=== PATIENT | male | born 1980 | race African-American/Black ===

== ENCOUNTER 2016-07-06 17:29 | Emergency (ER) | payer OTHER ==
[~2016-07-06] VITALS: Ht 170.2 cm; Wt 78.5 kg
[~2016-07-06 17:29] MED LIST: ALBU8.5H3 IH; HYDR-971 PO; IBUP400T PO; PENI250T2 PO; PENI500T PO
[2016-07-06 17:32] VITALS: BP 142/74
[2016-07-06] MEDS ORDERED: PENI250T2 PO (17:44)
[2016-07-06] MEDS ORDERED: HYDR-971 PO (17:44)
--- NOTE | 2016-07-06 17:47 | ED.ADGEN ---
Past History Past Medical History: No Pertinent History, Hypertension Past Surgical History: No Surgical History Smoking: Cigarettes Alcohol Use: Rarely Drug Use: None Adult General HPI HPI Patient is a 36-year-old male presents emergency department complaining of chronic dental pain on the right upper side. This tooth is been a ongoing problem. He did finally see a dentist but due to the involvement of the nerve to the tooth they will pull it for him. He has been in contact with multiple oral surgeons having difficulty finding one that will accept his insurance. Patient denies any difficulty with breathing or secretions. Review of Systems Review of Systems Constitutional: Denies fever or chills [] Eyes: Denies change in visual acuity, redness, or eye pain [] HENT: Denies nasal congestion or sore throat [] Respiratory: Denies cough or shortness of breath [] Cardiovascular: No additional information not addressed in HPI [] GI: Denies abdominal pain, nausea, vomiting, bloody stools or diarrhea [] : Denies dysuria or hematuria [] Musculoskeletal: Denies back pain or joint pain [] Integument: Denies rash or skin lesions [] Neurologic: Denies headache, focal weakness or sensory changes [] Endocrine: Denies polyuria or polydipsia [] Allergies Allergies Allergies Coded Allergies Type Severity Reaction Last Updated Verified tramadol Allergy Intermediate rash 04/03/14 Yes trazodone Allergy Intermediate Nausea and Vomiting 04/03/14 No Physical Exam Physical Exam Constitutional: Well developed, well nourished, no acute distress, non-toxic appearance. [] HENT: Normocephalic, atraumatic, bilateral external ears normal, oropharynx moist, no oral exudates, nose normal. [] Eyes: PERRLA, EOMI, conjunctiva normal, no discharge. [] Neck: Normal range of motion, no tenderness, supple, no stridor. [] Cardiovascular:Heart rate regular rhythm, no murmur [] Lungs & Thorax: Bilateral breath sounds clear to auscultation [] Abdomen: Bowel sounds normal, soft, no tenderness, no masses, no pulsatile masses. [] Skin: Warm, dry, no erythema, no rash. [] Back: No tenderness, no CVA tenderness. [] Extremities: No tenderness, no cyanosis, no clubbing, ROM intact, no edema. [] Neurologic: Alert and oriented X 3, normal motor function, normal sensory function, no focal deficits noted. [] Psychologic: Affect normal, judgement normal, mood normal. [] Current Patient Data Vital Signs Vital Signs Date Time Temp Pulse Resp B/P Pulse Ox O2 Delivery O2 Flow Rate FiO2 07/06/16 17:32 98.0 80 18 98 Room Air EKG EKG [] Radiology/Procedures Radiology/Procedures [] Course & Med Decision Making Course & Med Decision Making Pertinent Labs and Imaging studies reviewed. (See chart for details) Patient was again given dental resources along with a prescription for penicillin and [place]. [] Final Impression Final Impression Dental pain [] Problems: Dragon Disclaimer Dragon Disclaimer This electronic medical record was generated, in whole or in part, using a voice recognition dictation system. JOSE ALFREDO SCHULZ MD Jul 06, 2016 17:47
== END 2016-07-06 17:48 | disposition home or self-care (01) ==
LOC: ER 17:29
DX: K08.89 Other specified disorders of teeth and supporting structures (principal); I10 Essential (primary) hypertension; F17.210 Nicotine dependence, cigarettes, uncomplicated; Z88.8 Allergy status to other drugs, medicaments and biological substances
CPT/HCPCS: 99283

== ENCOUNTER 2017-01-05 21:48 | Emergency (ER) | payer OTHER ==
[~2017-01-05] VITALS: Ht 170.2 cm; Wt 77.9 kg
[2017-01-05 21:48] VITALS: BP 154/95
[~2017-01-05 21:48] MED LIST changes: -ALBU8.5H3 IH; +ALBU8.5H8 IH; -IBUP400T PO; +IBUP400T18 PO; -PENI250T2 PO; +PENI250T85 PO
[2017-01-05] MEDS ORDERED: PENI500T PO (22:45)
--- NOTE | 2017-01-05 22:45 | PHYS DOC ---
Past History Past Medical History: No Pertinent History, Hypertension Past Surgical History: No Surgical History Smoking: Cigarettes Alcohol Use: Rarely Drug Use: None Adult General Chief Complaint Chief Complaint: DENTAL PROBLEM HPI HPI 36-year-old male with dental pain. Pain is throbbing moderate intermittent nonradiating and without alleviating factors. Otherwise no other complaints.. Review of systems is negative for stridor fevers chills. All other review of systems is negative unless otherwise noted in history of present illness. ED course: 36-year-old male with dental pain. No tongue swelling, stridor or respiratory distress. Patient is not drooling. Airway intact. Small cavity in the back left tooth. I recommend follow-up with dentist. Penicillin prescribed to follow up with dentist in 2-3 days. The patient was then discharged home in stable condition to follow up with their primary care physician over the next 2- 3 days. They were to return if their symptoms worsened or if they were concerned for any reason. [id number] discharge instructions and return precautions were given. Patient's questions were answered to their satisfaction. Patient is comfortable plan. Review of Systems Review of Systems SEE ABOVE Allergies Allergies Allergies Coded Allergies Type Severity Reaction Last Updated Verified tramadol Allergy Intermediate rash 04/03/14 Yes trazodone Allergy Intermediate Nausea and Vomiting 04/03/14 No Physical Exam Physical Exam Constitutional: Well developed, well nourished, no acute distress, non-toxic appearance. [] HENT: Normocephalic, atraumatic, bilateral external ears normal, oropharynx moist, no oral exudates, nose normal. [] Eyes: PERRLA, EOMI, conjunctiva normal, no discharge. [] Neck: Normal range of motion, no tenderness, supple, no stridor. [] Cardiovascular:Heart rate regular rhythm, no murmur [] Lungs & Thorax: Bilateral breath sounds clear to auscultation [] Abdomen: Bowel sounds normal, soft, no tenderness, no masses, no pulsatile masses. [] Skin: Warm, dry, no erythema, no rash. [] Back: No tenderness, no CVA tenderness. [] Extremities: No tenderness, no cyanosis, no clubbing, ROM intact, no edema. [] Neurologic: Alert and oriented X 3, normal motor function, normal sensory function, no focal deficits noted. [] Psychologic: Affect normal, judgement normal, mood normal. [] EKG EKG [] Radiology/Procedures Radiology/Procedures [] Course & Med Decision Making Course & Med Decision Making Pertinent Labs and Imaging studies reviewed. (See chart for details) [] Dragon Disclaimer Dragon Disclaimer This chart was dictated in whole or in part using Voice Recognition software in a busy, high-work load, and often noisy Emergency Department environment. It may contain unintended and wholly unrecognized errors or omissions. Departure Departure: Impression: Primary Impression: Pain, dental Disposition: HOME, SELF-CARE Condition: STABLE Referrals: ADELINA SARMIENTO (PCP) Patient Instructions: Dental Pain Additional Instructions: Thank you for allowing us to participate in your care today. follow up with a dentist tomorrow or the next day. Scripts Penicillin V Potassium (PENICILLIN V POTASSIUM) 500 Mg Tablet 1 TAB PO BID, #10 TAB 0 Refills Prov: JAYESH SKAGGS MD 01/05/17 JAYESH SKAGGS MD Jan 05, 2017 22:45
[2017-01-05] MEDS ORDERED: IBUPROFEN 400 MG TABLET. PO ONE (23:00)
== END 2017-01-05 23:00 | disposition home or self-care (01) ==
LOC: ER 21:48
DX: K08.89 Other specified disorders of teeth and supporting structures (principal); I10 Essential (primary) hypertension; F17.210 Nicotine dependence, cigarettes, uncomplicated; Z88.6 Allergy status to analgesic agent; Z88.8 Allergy status to other drugs, medicaments and biological substances
CPT/HCPCS: 99283

== ENCOUNTER 2017-07-31 15:38 | Emergency (ER) | payer OTHER ==
[~2017-07-31] VITALS: Ht 168.9 cm; Wt 80.0 kg
[2017-07-31] MEDS ORDERED: ACET-704 PO (16:07)
[2017-07-31] MEDS ORDERED: NAPR-683 PO (16:07)
[2017-07-31] MEDS ORDERED: PENI500T PO (16:07)
--- NOTE | 2017-07-31 16:07 | PHYS DOC ---
Past History Past Medical History: Asthma, Hypertension Past Surgical History: No Surgical History Smoking: Cigarettes Alcohol Use: Occasionally Drug Use: None Adult General Chief Complaint Chief Complaint: DENTAL PROBLEM HPI HPI 37-year-old male patient complaining of right lower jaw and dental pain for 10 days as an intermittent pain that ends with eating and talking as a sharp pain and rated his pain 6/10. Patient said the pain radiated to his ear and denies fever and chills and problems swallowing. Patient states he was not able to follow-up with her dentist because of insurance problem. Review of Systems Review of Systems Constitutional: Denies fever or chills [] Eyes: Denies change in visual acuity, redness, or eye pain [] HENT: Denies nasal congestion or sore throat [] Respiratory: Denies cough or shortness of breath [] Cardiovascular: No additional information not addressed in HPI [] GI: Denies abdominal pain, nausea, vomiting, bloody stools or diarrhea [] : Denies dysuria or hematuria [] Musculoskeletal: Denies back pain or joint pain [] Integument: Denies rash or skin lesions [] Neurologic: Denies headache, focal weakness or sensory changes [] Endocrine: Denies polyuria or polydipsia [] All other systems were reviewed and found to be within normal limits, except as documented in this note. Allergies Allergies Allergies Coded Allergies Type Severity Reaction Last Updated Verified tramadol Allergy Intermediate rash 04/03/14 Yes trazodone Allergy Intermediate Nausea and Vomiting 04/03/14 No Physical Exam Physical Exam Constitutional: Well developed, well nourished, mild distress, non-toxic appearance, anxious. [] HENT: Normocephalic, atraumatic, bilateral external ears normal, oropharynx moist, no oral exudates, right lower molar #1 with remaining root only and tenderness and mild edema and erythema without drainage of pus. [] Eyes: PERRLA, EOMI, conjunctiva normal, no discharge. [] Neck: Normal range of motion, no tenderness, supple, no stridor. [] Cardiovascular:Heart rate regular rhythm, no murmur [] Lungs & Thorax: Bilateral breath sounds clear to auscultation [] Neurologic: Alert and oriented X 3, normal motor function, normal sensory function, no focal deficits noted. [] Psychologic: Anxious, judgement normal, mood normal. [] EKG EKG [] Radiology/Procedures Radiology/Procedures [] Course & Med Decision Making Course & Med Decision Making Evaluation of patient in ER showed 37-year-old male patient who presented here because of dental pain and states ibuprofen did not help his pain. Patient didn' t want to have pain medication in ER. Patient was instructed to quit smoking and follow up with the dentist. Dragon Disclaimer Dragon Disclaimer This electronic medical record was generated, in whole or in part, using a voice recognition dictation system. Departure Departure: Impression: Primary Impression: Dental abscess Additional Impressions: Pain, dental Tobacco abuse Tobacco abuse counseling Disposition: HOME, SELF-CARE (At 1604) Condition: STABLE Referrals: ADELINA SARMIENTO (PCP) Patient Instructions: Dental Abscess, Smoking Cessation Additional Instructions: Quit smoking Follow-up with your dentist in 3-5 days Return to ER if not getting better Scripts Penicillin V Potassium (PENICILLIN V POTASSIUM) 500 Mg Tablet 1 TAB PO QID, #40 TAB Prov: CAYETANO ISABEL MD 07/31/17 Naproxen (NAPROSYN) 500 Mg Tablet 1 TAB PO BID, #20 TAB 1 Refill Prov: CAYETANO ISABEL MD 07/31/17 Acetaminophen With Codeine (TYLENOL WITH CODEINE #3 TABLET) 1 Each Tablet 1 TAB PO Q6HRS, #12 TAB Prov: CAYETANO ISABEL MD 07/31/17 Problem Qualifiers CAYETANO ISABEL MD Jul 31, 2017 16:07
[2017-07-31 16:19] VITALS: BP 132/87
== END 2017-07-31 16:19 | disposition home or self-care (01) ==
LOC: ER 15:38
DX: K04.7 Periapical abscess without sinus (principal); I10 Essential (primary) hypertension; J45.909 Unspecified asthma, uncomplicated; F17.210 Nicotine dependence, cigarettes, uncomplicated; Z71.6 Tobacco abuse counseling; Z88.6 Allergy status to analgesic agent; Z88.8 Allergy status to other drugs, medicaments and biological substances
CPT/HCPCS: 99283

== ENCOUNTER 2017-08-19 15:04 | Emergency (ER) | payer OTHER ==
[~2017-08-19 15:04] MED LIST changes: +ACET-704 PO; +NAPR-683 PO
[2017-08-19 15:10] VITALS: BP 150/99
[2017-08-19] MEDS ORDERED: Percogesic PO (15:39)
[2017-08-19] MEDS ORDERED: CLIN150C14 PO (15:39)
--- NOTE | 2017-08-19 15:41 | PHYS DOC ---
Past History Past Medical History: Asthma, Hypertension, Other Past Surgical History: No Surgical History Smoking: Cigarettes Alcohol Use: Occasionally Drug Use: None Adult General Chief Complaint Chief Complaint: DENTAL PROBLEM [facility] HPI 37-year-old male patient complaining of right lower jaw and tooth pain for 2 and half weeks and states he was seen in this emergency room and treated with antibiotic and pain medication but his dental appointment next week and his pain returned again. Patient denies fever and chills, nausea and vomiting, swallowing problem. Review of Systems Review of Systems Constitutional: Denies fever or chills [] Eyes: Denies change in visual acuity, redness, or eye pain [] HENT: Denies nasal congestion or sore throat reports dental pain [] Respiratory: Denies cough or shortness of breath [] Cardiovascular: No additional information not addressed in HPI [] GI: Denies abdominal pain, nausea, vomiting, bloody stools or diarrhea [] : Denies dysuria or hematuria [] Musculoskeletal: Denies back pain or joint pain [] Integument: Denies rash or skin lesions [] Neurologic: Denies headache, focal weakness or sensory changes [] Endocrine: Denies polyuria or polydipsia [] All other systems were reviewed and found to be within normal limits, except as documented in this note. Current Medications Current Medications Current Medications Medications (Trade) Dose Ordered Sig/Maya Start Time Stop Time Status Last Admin Dose Admin Acetaminophen/ Hydrocodone Bitart (Lortab 5/325) 1 tab 1X ONCE 08/19/17 15:45 08/19/17 15:46 UNV Allergies Allergies Allergies Coded Allergies Type Severity Reaction Last Updated Verified tramadol Allergy Intermediate rash 04/03/14 Yes trazodone Allergy Intermediate Nausea and Vomiting 04/03/14 No Physical Exam Physical Exam Constitutional: Well nourished, mild distress, non-toxic appearance. [] HENT: Normocephalic, atraumatic, bilateral external ears normal, oropharynx moist, no oral exudates, nose normal, right lower molar #2 with extensive cavity and remaining root only without abscess Eyes: PERRLA, EOMI, conjunctiva normal, no discharge. [] Neck: Normal range of motion, no tenderness, supple, no stridor. [] Cardiovascular:Heart rate regular rhythm, no murmur [] Lungs & Thorax: Bilateral breath sounds clear to auscultation [] Neurologic: Alert and oriented X 3, normal motor function, normal sensory function, no focal deficits noted. [] Psychologic: Anxious, judgement normal, mood normal. [] EKG EKG [] Radiology/Procedures Radiology/Procedures [] Course & Med Decision Making Course & Med Decision Making discharge: I've spoken with the patient and/or caregivers. I've explained the patient's condition, diagnosis and treatment plan based on information available to me at this time. I've answered the patient's and/or caregivers questions and addressed any concerns. The patient and/or caregivers have a good understanding the patient's diagnosis, condition and treatment plan as can be expected at this point. Vital signs have been stabilized. The patient's condition is stable for discharge from the emergency department. The patient will pursue further outpatient evaluation with her primary care provider or other designated consulting physician as outlined in the discharge instructions. Patient and/or caregivers are agreeable to this plan of care and follow-up instructions have been explained in detail. The patient and/or caregivers have received these instructions in written format and expressed understanding of these discharge instructions. The patient and her caregivers are aware that if any significant change in condition or worsening of symptoms should prompt him to immediately return to this of the closest emergency department. If an emergent department is not readily available I would encourage him to call 911. Neymar Disclaimer Sophieon Disclaimer This electronic medical record was generated, in whole or in part, using a voice recognition dictation system. Departure Departure: Impression: Primary Impression: Infected dental carries Additional Impressions: Dentalgia Tobacco abuse Tobacco abuse counseling Disposition: HOME, SELF-CARE (At 1540) Condition: STABLE Referrals: ADELINA SARMIENTO (PCP) Patient Instructions: Dental Caries, Dental Pain, Smoking Cessation Additional Instructions: Follow-up with your dentist as a scheduled Quit smoking Scripts [Percogesic] No Conflict Check 1 TAB PO QID Y for PAIN, #14 Prov: CAYETANO ISABEL MD 08/19/17 Clindamycin Hcl (CLINDAMYCIN HCL) 150 Mg Capsule 1 CAP PO QID, #28 CAP Prov: CAYETANO ISABEL MD 08/19/17 Problem Qualifiers CAYETANO ISAEBL MD August 19, 2017 15:41
[2017-08-19] MEDS ORDERED: HYDROcodone/APAP 5/325MG 1 TAB TABLET PO ONE (16:00)
== END 2017-08-19 15:53 | disposition home or self-care (01) ==
LOC: ER 15:04
DX: K02.9 Dental caries, unspecified (principal); K04.7 Periapical abscess without sinus; I10 Essential (primary) hypertension; J45.909 Unspecified asthma, uncomplicated; F17.210 Nicotine dependence, cigarettes, uncomplicated; Z71.6 Tobacco abuse counseling; Z88.6 Allergy status to analgesic agent; Z88.8 Allergy status to other drugs, medicaments and biological substances
CPT/HCPCS: 99283

== ENCOUNTER 2017-10-27 20:30 | Emergency (ER) | payer OTHER ==
[~2017-10-27] VITALS: Ht 167.6 cm; Wt 79.8 kg
[~2017-10-27 20:30] MED LIST changes: +CLIN150C14 PO; +Percogesic PO
[2017-10-27 20:39] VITALS: BP 137/83
--- NOTE | 2017-10-28 07:10 | ED.ADGEN ---
Past History Past Medical History: Asthma, Hypertension, Other Past Surgical History: No Surgical History Smoking: Cigarettes Alcohol Use: Rarely Drug Use: None Adult General Chief Complaint Chief Complaint Back pain HPI HPI Patient is a 37-year-old Afro-[place] male presents with exacerbation of chronic back pain. Patient denies any new injury or repetitive strain type these. Denies family weakness loss of sensation. No fever chills, nausea vomiting sweats. No abdominal pain. Patient is described as moderate severe worse bending, position change and movement. No medications or therapy is attempted prior to ED arrival. Patient states he is able to be seen by a PCP due to lack of insurance. [] Review of Systems Review of Systems ROS as per HPI] All other systems were reviewed and found to be within normal limits, except as documented in this note. Allergies Allergies Allergies Coded Allergies Type Severity Reaction Last Updated Verified tramadol Allergy Intermediate rash 04/03/14 Yes trazodone Allergy Intermediate Nausea and Vomiting 04/03/14 No Physical Exam Physical Exam Constitutional: Well developed, well nourished, no acute distress, non-toxic appearance. [] HENT: Normocephalic, atraumatic, bilateral external ears normal, oropharynx moist, nose normal. [] Eyes: PERRLA, EOMI, conjunctiva normal, no discharge. [] Neck: Normal range of motion, no tenderness. [] Cardiovascular:Heart rate regular rhythm.[] Lungs & Thorax: Bilateral breath sounds clear to auscultation [] Abdomen: Bowel sounds normal, soft, no tenderness. [] Skin: Warm, dry. [] Back: No midline back tenderness, diffuse lower paravertebral pain. No CVA tenderness. [] Extremities: No tenderness. [] Neurologic: Alert and oriented X 3, lower normal motor function, normal sensory function, no focal deficits noted. [] Psychologic: Affect normal, judgement normal, mood normal. [] Current Patient Data Vital Signs Vital Signs Date Time Temp Pulse Resp B/P (MAP) Pulse Ox O2 Delivery O2 Flow Rate FiO2 10/27/17 20:39 98.3 90 18 100 Room Air EKG EKG [] Radiology/Procedures Radiology/Procedures [] Course & Med Decision Making Course & Med Decision Making Pertinent Labs and Imaging studies reviewed. (See chart for details) [Recommend supportive care. ] Final Impression Final Impression [1. back pain] Dragon Disclaimer Dragon Disclaimer This electronic medical record was generated, in whole or in part, using a voice recognition dictation system. MILTON WILBURN DO Oct 28, 2017 07:10
== END 2017-10-27 21:09 | disposition home or self-care (01) ==
LOC: ER 20:30
DX: G89.29 Other chronic pain (principal); M54.5 Low back pain; J45.909 Unspecified asthma, uncomplicated; I10 Essential (primary) hypertension; F17.210 Nicotine dependence, cigarettes, uncomplicated; Z88.6 Allergy status to analgesic agent; Z88.8 Allergy status to other drugs, medicaments and biological substances
CPT/HCPCS: 99282

== ENCOUNTER 2017-12-25 21:16 | Emergency (ER) | payer OTHER ==
[~2017-12-25] VITALS: Ht 167.6 cm; Wt 80.3 kg
--- NOTE | 2017-12-25 21:20 | ED.ADGEN ---
Past History Past Medical History: Asthma, Hypertension, Other Past Surgical History: No Surgical History Smoking: Cigarettes Alcohol Use: Rarely Drug Use: None Adult General Chief Complaint Chief Complaint ".. I ve got a cough... and wheezing..... I have asthma.. but I am out of my albuterol meds... " HPI HPI Patient is a 37 year old male who presents with above hx and complaints of a nonproductive cough and wheezing. Patient denies any travel or specific ill contacts other than his friend that has an upper respiratory infection. Patient does continue to smoke. Patient never been intubated for his asthma. Patient usually uses albuterol treatments up to 4 times a day when he has exacerbation. His triggers are weather changes and dust. Patient does not know a specific ill. Patient denies any history immunosuppression. Review of Systems Review of Systems Constitutional: Denies fever or chills [] Eyes: Denies change in visual acuity, redness, or eye pain [] HENT: History of nasal congestion Respiratory: History of a nonproductive cough and wheezing Cardiovascular: No additional information not addressed in HPI [] GI: Denies abdominal pain, nausea, vomiting, bloody stools or diarrhea [] : Denies dysuria or hematuria [] Musculoskeletal: Denies back pain or joint pain [] Integument: Denies rash or skin lesions [] Neurologic: Denies headache, focal weakness or sensory changes [] Endocrine: Denies polyuria or polydipsia [] All other systems were reviewed and found to be within normal limits, except as documented in this note. Family History Family History Asthma Current Medications Current Medications Current Medications Medications (Trade) Dose Ordered Sig/Maya Start Time Stop Time Status Last Admin Dose Admin Albuterol Sulfate (Ventolin Hfa Inhaler) 2 puff 1X ONCE 12/25/17 22:30 12/25/17 22:31 DC 12/25/17 22:19 2 PUFF Diphenhydramine HCl (Benadryl) 50 mg 1X ONCE 12/25/17 22:00 12/25/17 22:01 DC 12/25/17 21:59 50 MG Prednisone (Prednisone) 60 mg 1X ONCE 12/25/17 22:00 12/25/17 22:01 DC 12/25/17 21:58 60 MG Allergies Allergies Allergies Coded Allergies Type Severity Reaction Last Updated Verified oxymorphone Allergy Intermediate Rash 12/25/17 Yes tramadol Allergy Intermediate rash 04/03/14 Yes trazodone Allergy Intermediate Nausea and Vomiting 04/03/14 No Physical Exam Physical Exam Constitutional: Mild distress, non-toxic appearance. [] HENT: Normocephalic, atraumatic, bilateral external ears normal, oropharynx moist, no oral exudates, nose clear rhinorrhea Eyes: PERRLA, EOMI, conjunctiva normal, no discharge. [] Neck: Normal range of motion, no tenderness, supple, no stridor. [] Cardiovascular:Heart rate regular rhythm, no murmur [] Lungs & Thorax: Bilateral breath sounds equal at apexes with scattered wheezes on auscultation [] Abdomen: Bowel sounds normal, soft, no tenderness, no masses, no pulsatile masses. [] Skin: Warm, dry, no erythema, no rash. [] Back: No tenderness, no CVA tenderness. [] Extremities: No tenderness, no cyanosis, no clubbing, ROM intact, no edema. [] Neurologic: Alert and oriented X 3, normal motor function, normal sensory function, no focal deficits noted. [] Psychologic: Affect anxious, judgement normal, mood normal. [] Current Patient Data Vital Signs Vital Signs Date Time Temp Pulse Resp B/P (MAP) Pulse Ox O2 Delivery O2 Flow Rate FiO2 12/25/17 21:24 97.9 90 18 98 Room Air EKG EKG [] Radiology/Procedures Radiology/Procedures [] Course & Med Decision Making Course & Med Decision Making Pertinent Labs and Imaging studies reviewed. (See chart for details). Patient to take prednisone 50 mg day for 5 days. Patient use [id number] Benadryl 25-50 mg 4 times a day for congestion and rhinorrhea. Patient uses MDI or albuterol treatments 4 times a day. Patient follow-up primary care. Patient strongly encouraged to stop smoking. [] Final Impression Final Impression 1. Asthma exacerbation[] Dragon Disclaimer Dragon Disclaimer This electronic medical record was generated, in whole or in part, using a voice recognition dictation system. DUYEN KERR MD Dec 25, 2017 21:20
[2017-12-25 21:24] VITALS: BP 144/75
[2017-12-25] MEDS ORDERED: PRED50TA PO (21:36)
[2017-12-25] MEDS ORDERED: ALBU2.5V5 NEB (21:37)
[2017-12-25] MEDS ORDERED: predniSONE 20 MG TABLET PO ONE (22:00)
[2017-12-25] MEDS ORDERED: diphenhydrAMINE HCL 25 MG CAPSULE PO ONE (22:00)
[2017-12-25] MEDS ORDERED: ALBUTEROL SULFATE 8GM INHALER. INH ONE (22:30)
== END 2017-12-25 22:40 | disposition home or self-care (01) ==
LOC: ER 21:16
DX: J45.901 Unspecified asthma with (acute) exacerbation (principal); I10 Essential (primary) hypertension; F17.210 Nicotine dependence, cigarettes, uncomplicated; Z88.5 Allergy status to narcotic agent; Z88.6 Allergy status to analgesic agent; Z88.8 Allergy status to other drugs, medicaments and biological substances
CPT/HCPCS: 94640; 99283; J7512; J7613; Q0163

== ENCOUNTER 2018-02-16 08:40 | Emergency (ER) | payer OTHER ==
[~2018-02-16] VITALS: Ht 167.6 cm; Wt 78.5 kg
[2018-02-16 08:40] VITALS: BP 143/98
[~2018-02-16 08:40] MED LIST changes: +ALBU2.5V5 NEB; +PRED50TA PO
[2018-02-16] MEDS ORDERED: PENI500T PO (09:31)
[2018-02-16] MEDS ORDERED: Percogesic PO (09:31)
--- NOTE | 2018-02-16 09:31 | PHYS DOC ---
Past History Past Medical History: Anxiety, Asthma, Depression, Hypertension, Other Past Surgical History: No Surgical History Smoking: Cigarettes Alcohol Use: Rarely Drug Use: None Adult General Chief Complaint Chief Complaint: DENTAL PROBLEM [facility] HPI Patient is a 37 year old male who presents with complaining of dental pain for 10 days that gradually getting worse and doesn't get better with over-the- counter ibuprofen and leftover of Mobic from previous emergency room visit. Patient states he had dental appointment but because of transportation problems he was not able to see his dentist. Patient rated his pain as a severe pain with radiation to his right ear and upper jaw is a constant pain that getting worse with talking and chewing and Patient states he smokes cigars. Patient has had frequent emergency room visits with complaining of different pains. Review of Systems Review of Systems Constitutional: Denies fever or chills [] Eyes: Denies change in visual acuity, redness, or eye pain [] HENT: Denies nasal congestion or sore throat, reports dental pain Respiratory: Denies cough or shortness of breath [] Cardiovascular: No additional information not addressed in HPI [] GI: Denies abdominal pain, nausea, vomiting, bloody stools or diarrhea [] : Denies dysuria or hematuria [] Musculoskeletal: Denies back pain or joint pain [] Integument: Denies rash or skin lesions [] Neurologic: Denies headache, focal weakness or sensory changes [] Endocrine: Denies polyuria or polydipsia [] All other systems were reviewed and found to be within normal limits, except as documented in this note. Allergies Allergies Allergies Coded Allergies Type Severity Reaction Last Updated Verified oxymorphone Allergy Intermediate Rash 12/25/17 Yes tramadol Allergy Intermediate rash 04/03/14 Yes trazodone Allergy Intermediate Nausea and Vomiting 04/03/14 No Physical Exam Physical Exam Constitutional: Well nourished, mild distress, non-toxic appearance. [] HENT: Normocephalic, atraumatic, bilateral external ears normal, oropharynx moist, no oral exudates, nose normal, extensive dental cavity, tooth #32 with tenderness and mild inflammation without sign of abscess. [] Eyes: PERRLA, EOMI, conjunctiva normal, no discharge. [] Neck: Normal range of motion, no tenderness, supple, no stridor. [] Cardiovascular:Heart rate regular rhythm, no murmur [] Lungs & Thorax: Bilateral breath sounds clear to auscultation [] Skin: Warm, dry, no erythema, no rash. [] Back: No tenderness, no CVA tenderness. [] Extremities: No tenderness, no cyanosis, no clubbing, ROM intact, no edema. [] Neurologic: Alert and oriented X 3, normal motor function, normal sensory function, no focal deficits noted. [] Psychologic: Affect normal, judgement normal, mood normal. [] EKG EKG [] Radiology/Procedures Radiology/Procedures [] Course & Med Decision Making Course & Med Decision Making Evaluation of patient in ER showed 37-year-old male patient with history of frequent emergency room visits and complaining of dental pain for 10 days. Patient instructed to follow up with his dentist and quit smoking and plan to give prescription for Pen VK and Percogesic. @1010: Patient asking for narcotic pain medication and instructed to follow with his dentist for his chronic dental pain. Patient has frequent emergency room visits and prescription of hydrocodone. Dragon Disclaimer Dragon Disclaimer This electronic medical record was generated, in whole or in part, using a voice recognition dictation system. Departure Departure: Impression: Primary Impression: Pain, dental Additional Impressions: Tobacco abuse counseling Tobacco abuse Disposition: HOME, SELF-CARE (at 0927) Condition: STABLE Referrals: PCP,MAHOGANY (PCP) Patient Instructions: Smoking Cessation, Tips For Success, Toothache-Brief Additional Instructions: Follow-up with your scheduled dentist appointment Follow-up with your primary care physician in 3-5 days Return to ER if not getting better Scripts [Percogesic] No Conflict Check 1 TAB PO QID PRN for PAIN, #14 TAB Prov: CAYETANO ISABEL MD 02/16/18 Penicillin V Potassium (PENICILLIN V POTASSIUM) 500 Mg Tablet 1 TAB PO QID for Infection, #40 TAB Prov: CAYETANO ISABEL MD 02/16/18 Problem Qualifiers CAYETANO ISABEL MD Feb 16, 2018 09:31
[2018-02-16] MEDS ORDERED: HYDROcodone/APAP 5/325MG 1 TAB TABLET PO ONE (09:45)
== END 2018-02-16 09:37 | disposition home or self-care (01) ==
LOC: ER 08:40
DX: K08.89 Other specified disorders of teeth and supporting structures (principal); K02.9 Dental caries, unspecified; F17.210 Nicotine dependence, cigarettes, uncomplicated; J45.909 Unspecified asthma, uncomplicated; I10 Essential (primary) hypertension; Z71.6 Tobacco abuse counseling; Z88.5 Allergy status to narcotic agent; Z88.6 Allergy status to analgesic agent; Z88.8 Allergy status to other drugs, medicaments and biological substances
CPT/HCPCS: 99283

== ENCOUNTER 2018-07-15 17:38 | Emergency (ER) | payer OTHER ==
[~2018-07-15] VITALS: Ht 167.6 cm; Wt 81.0 kg
[~2018-07-15 17:38] MED LIST changes: +ALBU2.5V8 IH; -ALBU8.5H8 IH; +HYDR-3165 PO; -HYDR-971 PO
--- NOTE | 2018-07-15 17:40 | ED.ADGEN ---
Past History Past Medical History: Anxiety, Asthma, Depression, Hypertension, Other Past Surgical History: No Surgical History Smoking: Cigarettes Alcohol Use: Occasionally Drug Use: None Adult General Chief Complaint Chief Complaint ".. I really hurting .. here in this upper rear tooth...(16).. I was able to get the other one pulled (1)... but they put off this one until later. .. and my asthma is also kicking up.... and I can't get in to see my doctor until next week..." [facility] HPI Patient is a 38 year old male who presents with above hx and complaints of Dental Pain in tooth 16. No trismus. No adenopathy. Pt. also complaints of asthma and recent flair due to seasons and weather changes. Pt. patient denies immune suppression. Patient advised travel or specific ill contacts. Patient does have a dentis and primary he follows with. Pt. states he is currently out of his inhaler. Patient has planned follow-up. Patient does not know his best peak flow.. Patient not on steroids. Patient does continue to smoke. Review of Systems Review of Systems Constitutional: Denies fever or chills [] Eyes: Denies change in visual acuity, redness, or eye pain [] HENT: Denies nasal congestion or sore throat []complaints of dental pain Respiratory: Denies cough or shortness of breath []complaints of wheezing Cardiovascular: No additional information not addressed in HPI [] GI: Denies abdominal pain, nausea, vomiting, bloody stools or diarrhea [] : Denies dysuria or hematuria [] Musculoskeletal: Denies back pain or joint pain [] Integument: Denies rash or skin lesions [] Neurologic: Denies headache, focal weakness or sensory changes [] Endocrine: Denies polyuria or polydipsia [] All other systems were reviewed and found to be within normal limits, except as documented in this note. Family History Family History Noncontributory Current Medications Current Medications Current Medications Medications (Trade) Dose Ordered Sig/Maya Start Time Stop Time Status Last Admin Dose Admin Albuterol Sulfate (Ventolin Hfa Inhaler) 2 puff 1X ONCE 07/15/18 18:00 07/15/18 18:02 DC 07/15/18 18:02 2 PUFF Cephalexin HCl (Keflex) 500 mg 1X ONCE 07/15/18 18:00 07/15/18 18:02 DC 07/15/18 18:01 500 MG Hydrocodone Bitartrate/ Ibuprofen (Vicoprofen 7.5-200) 2 tab 1X ONCE 07/15/18 18:00 07/15/18 18:02 DC 07/15/18 18:01 2 TAB See nursing for home meds Allergies Allergies Allergies Coded Allergies Type Severity Reaction Last Updated Verified oxymorphone Allergy Intermediate Rash 12/25/17 Yes tramadol Allergy Intermediate rash 04/03/14 Yes trazodone Allergy Intermediate Nausea and Vomiting 04/03/14 No Physical Exam Physical Exam Constitutional: Well developed, well nourished, no acute distress, non-toxic appearance. [] HENT: Normocephalic, atraumatic, bilateral external ears normal, oropharynx moist, no oral exudates, nose normal. []Dental pain in tooth #16 Eyes: PERRLA, EOMI, conjunctiva normal, no discharge. [] Neck: Normal range of motion, no tenderness, supple, no stridor. [] Cardiovascular:Heart rate regular rhythm, no murmur [] Lungs & Thorax: Bilateral breath sounds equal apex with scattered wheezes on auscultation [] Abdomen: Bowel sounds normal, soft, no tenderness, no masses, no pulsatile masses. [] Skin: Warm, dry, no erythema, no rash. [] Back: No tenderness, no CVA tenderness. [] Extremities: No tenderness, no cyanosis, no clubbing, ROM intact, no edema. [] Neurologic: Alert and oriented X 3, normal motor function, normal sensory function, no focal deficits noted. [] Psychologic: Affect normal, judgement normal, mood normal. [] Current Patient Data Vital Signs Vital Signs Date Time Temp Pulse Resp B/P (MAP) Pulse Ox O2 Delivery O2 Flow Rate FiO2 07/15/18 17:45 98.7 98 18 99 Room Air EKG EKG [] Radiology/Procedures Radiology/Procedures [] Course & Med Decision Making Course & Med Decision Making Pertinent Labs and Imaging studies reviewed. (See chart for details). Pt. must follow-up with Dentist. . Patient must follow-up primary care. Patient does take Keflex 500 mg 3 times a day. Patient take Tylenol ibuprofen for pain. For marked pain take Vicoprofen up 4 times a day. Use MDI 2 puffs 4 times a day. Return if any concerns. Patient encouraged to stop smoking completely. [] Final Impression Final Impression 1. Dental Pain[] 2. Asthma 3. Tobacco Abuse Neymar Disclaimer Neymar Disclaimer This electronic medical record was generated, in whole or in part, using a voice recognition dictation system. Discharge Summary Visit Information Final Diagnosis Problems Medical Problems: (1) Asthma Status: Acute (2) Pain, dental Status: Acute Brief Hospital Course Allergies Allergies Coded Allergies Type Severity Reaction Last Updated Verified oxymorphone Allergy Intermediate Rash 12/25/17 Yes tramadol Allergy Intermediate rash 04/03/14 Yes trazodone Allergy Intermediate Nausea and Vomiting 04/03/14 No Vital Signs Vital Signs Date Time Temp Pulse Resp B/P (MAP) Pulse Ox O2 Delivery O2 Flow Rate FiO2 07/15/18 17:45 98.7 98 18 99 Room Air Brief Hospital Course Mr. Walker is a 38 old male who presented with asthma and dental pain. Discharge Information Condition at Discharge: Improved, Stable Disposition/Orders: D/C to Home Dischare Medications Current Medications Albuterol Sulfate (Ventolin Hfa Inhaler) 2 puff 1X ONCE INH Last administered on 07/15/18at 18:02; Admin Dose 2 PUFF; Start 07/15/18 at 18:00; Stop 07/15/18 at 18 :02; Status DC Cephalexin HCl (Keflex) 500 mg 1X ONCE PO Last administered on 07/15/18at 18:01 ; Admin Dose 500 MG; Start 07/15/18 at 18:00; Stop 07/15/18 at 18:02; Status DC Hydrocodone Bitartrate/ Ibuprofen (Vicoprofen 7.5-200) 2 tab 1X ONCE PO Last administered on 07/15/18at 18:01; Admin Dose 2 TAB; Start 07/15/18 at 18:00; Stop 07/15/18 at 18:02; Status DC Active Scripts Active Hydrocodone-Ibuprofen 7.5-200 (Hydrocodone/Ibuprofen) 1 Each Tablet 1 Tab PO PRN Q6HRS PRN Keflex (Cephalexin) 500 Mg Capsule 500 Mg PO TID Ventolin Hfa Inhaler (Albuterol Sulfate) 18 Gm Hfa.aer.ad 2 Puff IH PRN Q4HRS PRN 90 Days [Percogesic] 1 Tab PO QID PRN Penicillin V Potassium 500 Mg Tablet 1 Tab PO QID Albuterol Sulfate Neb Soln (Albuterol Sulfate) 2.5 Mg/3 Ml Vial.neb 2.5 Mg NEB QIDPRN PRN 30 Days Prednisone 50 Mg Tablet 50 Mg PO DAILY 5 Days [Percogesic] 1 Tab PO QID PRN Clindamycin Hcl 150 Mg Capsule 1 Cap PO QID Penicillin V Potassium 500 Mg Tablet 1 Tab PO QID Naprosyn (Naproxen) 500 Mg Tablet 1 Tab PO BID Tylenol With Codeine #3 Tablet (Acetaminophen With Codeine) 1 Each Tablet 1 Tab PO Q6HRS Penicillin V Potassium 500 Mg Tablet 1 Tab PO BID Penicillin V Potassium 250 Mg Tablet 1 Tab PO TID [place] 5-325 Tablet (Hydrocodone Bit/Acetaminophen) 1 Each Tablet 1-2 Tab PO PRN Q6HRS PRN Penicillin V Potassium 250 Mg Tablet 1 Tab PO TID [place] 5-325 Tablet (Hydrocodone Bit/Acetaminophen) 1 Each Tablet 1-2 Tab PO PRN Q6HRS PRN Penicillin V Potassium 500 Mg Tablet 1 Tab PO QID Penicillin V Potassium 500 Mg Tablet 1 Tab PO BID [place] 5-325 Tablet (Hydrocodone Bit/Acetaminophen) 1 Each Tablet 1-2 Tab PO PRN Q6HRS PRN Reported Ibuprofen 400 Mg Tablet 1 Tab PO PRN Q6HRS Proair Hfa Inhaler (Albuterol Sulfate) 8.5 Gm Hfa.aer.ad 8.5 Gm IH Dragon Disclaimer This chart was dictated in whole or in part using Voice Recognition software in a busy, high-work load, and often noisy Emergency Department environment. It may contain unintended and wholly unrecognized errors or omissions. DUYEN EKRR MD Jul 15, 2018 17:40
[2018-07-15 17:45] VITALS: BP 160/84
[2018-07-15] MEDS ORDERED: ALBU2.5V8 IH (17:48)
[2018-07-15] MEDS ORDERED: HYDR-1179 PO (17:49)
[2018-07-15] MEDS ORDERED: CEPH-264 PO (17:49)
[2018-07-15] MEDS ORDERED: CEPHALEXIN 250 MG CAPSULE PO ONE (18:00)
[2018-07-15] MEDS ORDERED: ALBUTEROL SULFATE 8GM INHALER. INH ONE (18:00)
[2018-07-15] MEDS ORDERED: HYDROcodon/IBUPROFEN 7.5/200MG 1 TAB TABLET PO ONE (18:00)
== END 2018-07-15 18:12 | disposition home or self-care (01) ==
LOC: ER 17:38
DX: J45.909 Unspecified asthma, uncomplicated (principal); K08.89 Other specified disorders of teeth and supporting structures; F17.210 Nicotine dependence, cigarettes, uncomplicated; F41.9 Anxiety disorder, unspecified; F32.9 Major depressive disorder, single episode, unspecified; I10 Essential (primary) hypertension; Z88.6 Allergy status to analgesic agent; Z88.8 Allergy status to other drugs, medicaments and biological substances; Z88.5 Allergy status to narcotic agent
CPT/HCPCS: 94640; 99283; J7613; 94664

== ENCOUNTER 2019-07-05 20:15 | Emergency (ER) | payer OTHER ==
[~2019-07-05] VITALS: Ht 167.6 cm; Wt 81.0 kg
[~2019-07-05 20:15] MED LIST changes: +CEPH-264 PO; +HYDR-1179 PO
--- NOTE | 2019-07-05 20:18 | PHYS DOC ---
Past History Past Medical History: Anxiety, Asthma, Depression, Hypertension, Other Past Surgical History: No Surgical History Smoking: Cigarettes Alcohol Use: Occasionally Drug Use: None Adult General Chief Complaint Chief Complaint: ".. I got really bad pain in this area where they pull a tooth in past.. a bone fragment seems to be coming thru. the gum... I seen a dentist.. they took care of some of the other teeth.. but this one was not a problem.. so they did not pull it.... I been taken Tylenol ibuprofen but is not covering the pain." HPI HPI Patient is a 39 year old male who presents with above hx and complaints of dental pain at dental area of 31. Patient appears to have a bone fragment coming into gum line. There is surrounding inflammation. There is no pointing abscesses. Other teeth appear to be in fair repair. No obvious gingivitis. No trismus. No pointing abscess. Patient denies any travel outside can see area. Patient does smoke. Patient denies any history of immunosuppression. Patient denies any specific ill contacts. Pt. follows with Zack Junior. Review of Systems Review of Systems Constitutional: Denies fever or chills [] Eyes: Denies change in visual acuity, redness, or eye pain [] HENT: Denies nasal congestion or sore throat [. Patient has]complaints of dental pain Respiratory: Denies cough or shortness of breath [] Cardiovascular: No additional information not addressed in HPI [] GI: Denies abdominal pain, nausea, vomiting, bloody stools or diarrhea [] : Denies dysuria or hematuria [] Musculoskeletal: Denies back pain or joint pain [] Integument: Denies rash or skin lesions [] Neurologic: Denies headache, focal weakness or sensory changes [] Endocrine: Denies polyuria or polydipsia [] All other systems were reviewed and found to be within normal limits, except as documented in this note. Family History Family History Noncontributory Current Medications Current Medications See nursing for home meds Allergies Allergies Allergies Coded Allergies Type Severity Reaction Last Updated Verified oxymorphone Allergy Intermediate Rash 12/25/17 Yes tramadol Allergy Intermediate rash 04/03/14 Yes trazodone Allergy Intermediate Nausea and Vomiting 04/03/14 No Physical Exam Physical Exam Constitutional: Well developed, well nourished, moderate acute distress, non- toxic appearance. [] HENT: Normocephalic, atraumatic, bilateral external ears normal, oropharynx moist, no oral exudates, nose normal. Dental pain in the area of tooth 31. No trismus. No adenopathy. No pointing abscess. No adenopathy appreciated. Eyes: PERRLA, EOMI, conjunctiva normal, no discharge. [] Neck: Normal range of motion, no tenderness, supple, no stridor. [] Cardiovascular:Heart rate regular rhythm, no murmur [] Lungs & Thorax: Bilateral breath sounds equal apex scattered wheezes on auscultation [] Abdomen: Bowel sounds normal, soft, no tenderness, no masses, no pulsatile masses. [] Skin: Warm, dry, no erythema, no rash. Tattoos Back: No tenderness, no CVA tenderness. [] Extremities: No tenderness, no cyanosis, no clubbing, ROM intact, no edema. [] Neurologic: Alert and oriented X 3, normal motor function, normal sensory function, no focal deficits noted. [] Psychologic: Affect anxious, judgement normal, mood normal. [] EKG EKG [] Radiology/Procedures Radiology/Procedures [] Course & Med Decision Making Course & Med Decision Making Pertinent Labs and Imaging studies reviewed. (See chart for details) Patient continued Tylenol and ibuprofen. Rinse mouth with Listerine 4 times a day and after eating. Must follow-up with a dentist. Take Keflex 500 mg 3 times a day. If marked pain may take Vicoprofen up to 4 times a day. Encourage patient to stop smoking. Pt refused Toradol injecting, stated that shot always makes his pain worse. Impression : 1. Dental Pain - area 31 2. Tobacco Use [] Dragon Disclaimer Dragon Disclaimer This electronic medical record was generated, in whole or in part, using a voice recognition dictation system. Departure Departure: Disposition: 01 HOME/RESIDENCE PRIOR TO ADM Condition: STABLE Referrals: ZACK JUNIOR RN, GNP (PCP) Scripts Cephalexin (KEFLEX) 500 Mg Capsule 500 MG PO TID for dental pain-, #60 BOTTLE Prov: DUYEN KERR MD 07/05/19 Hydrocodone/Ibuprofen (HYDROCODONE-IBUPROFEN 7.5-200 ) 1 Each Tablet 1 TAB PO PRN Q6HRS PRN for PAIN, #30 TAB 0 Refills Prov: DUYEN KERR MD 07/05/19 Dragon Disclaimer This chart was dictated in whole or in part using Voice Recognition software in a busy, high-work load, and often noisy Emergency Department environment. It may contain unintended and wholly unrecognized errors or omissions. DUYEN KERR MD Jul 05, 2019 20:18
[2019-07-05] MEDS ORDERED: CEPHALEXIN 250 MG CAPSULE PO ONE (20:30)
[2019-07-05] MEDS ORDERED: KETOROLAC 60 MG/2 ML VIAL. IM ONE (20:30)
[2019-07-05] MEDS ORDERED: CEPH-264 PO (20:38)
[2019-07-05] MEDS ORDERED: HYDR-1179 PO (20:38)
[2019-07-05 21:05] VITALS: BP 186/112
== END 2019-07-05 21:09 | disposition home or self-care (01) ==
LOC: ER 20:15
DX: K08.89 Other specified disorders of teeth and supporting structures (principal); J45.909 Unspecified asthma, uncomplicated; I10 Essential (primary) hypertension; F17.210 Nicotine dependence, cigarettes, uncomplicated; Z88.5 Allergy status to narcotic agent; Z88.6 Allergy status to analgesic agent; Z88.8 Allergy status to other drugs, medicaments and biological substances
CPT/HCPCS: 99283

== ENCOUNTER 2019-07-23 11:48 | Emergency (ER) | payer OTHER ==
[~2019-07-23] VITALS: Ht 175.3 cm; Wt 77.0 kg
[2019-07-23 11:56] VITALS: BP 139/80
--- NOTE | 2019-07-23 13:39 | PHYS DOC ---
Past History Past Medical History: Anxiety, Asthma Past Surgical History: No Surgical History Smoking: Cigarettes Alcohol Use: None Drug Use: None General Adult EDM: Chief Complaint: DENTAL PROBLEM HPI: HPI: 39-year-old male returns emergency room with continued dental pain. The patient has a fractured tooth with surrounding infection in the right lower portion of his mouth. I saw the patient for this several days ago. He has been trying to get into a dentist, but the first appointment is on the , 7 days from now. The patient is wondering if there is anything else that we can do in the meantime. The inflammation is getting better, but he still has significant tenderness and sensitivity when eating and drinking. He denies fever or chills. He is taking his clindamycin as prescribed. Review of Systems: Review of Systems: Constitutional: Denies fever or chills Eyes: Denies change in visual acuity HENT: Dental pain. Denies nasal congestion or sore throat Respiratory: Denies cough or shortness of breath Cardiovascular: Denies chest pain or edema GI: Denies abdominal pain, nausea, vomiting, bloody stools or diarrhea : Denies dysuria Musculoskeletal: Denies back pain or joint pain Integument: Denies rash Neurologic: Denies headache, focal weakness or sensory changes Endocrine: Denies polyuria or polydipsia Lymphatic: Denies swollen glands Psychiatric: Denies depression or anxiety Heart Score: Risk Factors: Risk Factors: DM, Current or recent (<one month) smoker, HTN, HLP, family history of CAD, obesity. Risk Scores: Score 0 - 3: 2.5% MACE over next 6 weeks - Discharge Home Score 4 - 6: 20.3% MACE over next 6 weeks - Admit for Clinical Observation Score 7 - 10: 72.7% MACE over next 6 weeks - Early Invasive Strategies Allergies: Allergies: Allergies Coded Allergies Type Severity Reaction Last Updated Verified ketorolac Allergy Severe Rash 07/05/19 Yes oxymorphone Allergy Intermediate Rash 12/25/17 Yes tramadol Allergy Intermediate rash 04/03/14 Yes trazodone Allergy Intermediate Nausea and Vomiting 04/03/14 No Physical Exam: PE: Constitutional: Well developed, well nourished, no acute distress, non-toxic appearance. [] HENT: The patient continues to have a fractured tooth in the right lower portion of his mouth. It is quite tender to palpation, but does look less swollen than his previous visit. Normocephalic, atraumatic, bilateral external ears normal, oropharynx moist, no oral exudates, nose normal. [] Eyes: PERRLA, EOMI, conjunctiva normal, no discharge. [] Neck: Normal range of motion, no tenderness, supple, no stridor. [] Cardiovascular:Heart rate regular rhythm, no murmur [] Lungs & Thorax: Bilateral breath sounds clear to auscultation [] Abdomen: Bowel sounds normal, soft, no tenderness, no masses, no pulsatile masses. [] Skin: Warm, dry, no erythema, no rash. [] Back: No tenderness, no CVA tenderness. [] Extremities: No tenderness, no cyanosis, no clubbing, ROM intact, no edema. [] Neurologic: Alert and oriented X 3, normal motor function, normal sensory fu nction, no focal deficits noted. [] Psychologic: Affect normal, judgement normal, mood normal. [] Current Patient Data: Vital Signs: Vital Signs Date Time Temp Pulse Resp B/P (MAP) Pulse Ox O2 Delivery O2 Flow Rate FiO2 07/23/19 11:56 97.1 70 16 139/80 (99) 99 Room Air EKG: EKG: [] Radiology/Procedures: Radiology/Procedures: [] Course & Med Decision Making: Course & Med Decision Making Pertinent Labs and Imaging studies reviewed. (See chart for details) The patient does appear to have some discomfort. His infection is improving but it is an exposed broken tooth. All I can offer is more pain medication. I will give him additional [place] 5/325 to get him through the next week. He is stable for discharge at this time. [] Dragon Disclaimer: Dragon Disclaimer: This electronic medical record was generated, in whole or in part, using a voice recognition dictation system. Departure Departure: Impression: Primary Impression: Infected tooth Disposition: HOME, SELF-CARE Condition: STABLE Patient Instructions: Dental Pain, [id number] MILTON ASHRAF DO Jul 23, 2019 13:39
== END 2019-07-23 12:35 | disposition home or self-care (01) ==
LOC: ER 11:48
DX: K04.7 Periapical abscess without sinus (principal); F41.9 Anxiety disorder, unspecified; J45.909 Unspecified asthma, uncomplicated; F17.210 Nicotine dependence, cigarettes, uncomplicated; Z88.5 Allergy status to narcotic agent; Z88.6 Allergy status to analgesic agent; Z88.8 Allergy status to other drugs, medicaments and biological substances
CPT/HCPCS: 99283

== ENCOUNTER 2019-09-28 17:45 | Emergency (ER) | payer OTHER ==
[~2019-09-28] VITALS: Ht 172.7 cm; Wt 77.0 kg
[2019-09-28 17:49] VITALS: BP 140/92
--- NOTE | 2019-09-28 17:57 | PHYS DOC ---
Past History Past Medical History: Anxiety, Asthma Past Surgical History: No Surgical History Smoking: Cigarettes Alcohol Use: None Drug Use: None General Adult EDM: Chief Complaint: DENTAL PROBLEM HPI: HPI: Patient is a 39 year old male who presents for evaluation of right-sided tooth and dental pain. Onset of symptoms over the past several weeks. Patient states that he is tried but was not able to get into see his dentist. Patient just recently finished a course of Augmentin. Patient is requesting something strong for pain. Patient further states that he does not currently have a family doctor and is running low on his lisinopril. There is no reported fevers and chills. Patient has multiple allergies including nonsteroidal anti- inflammatories and tramadol. Review of Systems: Review of Systems: Constitutional: Denies fever or chills Eyes: Denies change in visual acuity HENT: Denies nasal congestion or sore throat. Right side dental pain Respiratory: Denies cough or shortness of breath Cardiovascular: Denies chest pain or edema GI: Denies abdominal pain, nausea, vomiting, bloody stools or diarrhea : Denies dysuria Musculoskeletal: Denies back pain or joint pain Integument: Denies rash Neurologic: Denies headache, focal weakness or sensory changes Endocrine: Denies polyuria or polydipsia Lymphatic: Denies swollen glands Psychiatric: Denies depression or anxiety Heart Score: Risk Factors: Risk Factors: DM, Current or recent (<one month) smoker, HTN, HLP, family history of CAD, obesity. Risk Scores: Score 0 - 3: 2.5% MACE over next 6 weeks - Discharge Home Score 4 - 6: 20.3% MACE over next 6 weeks - Admit for Clinical Observation Score 7 - 10: 72.7% MACE over next 6 weeks - Early Invasive Strategies Allergies: Allergies: Allergies Coded Allergies Type Severity Reaction Last Updated Verified ketorolac Allergy Severe Rash 07/05/19 Yes oxymorphone Allergy Intermediate Rash 12/25/17 Yes tramadol Allergy Intermediate rash 04/03/14 Yes trazodone Allergy Intermediate Nausea and Vomiting 04/03/14 No Physical Exam: PE: Constitutional: Well developed, well nourished, mild acute distress, non-toxic appearance. [] HENT: Normocephalic, atraumatic, bilateral external ears normal, oropharynx moist, no oral exudates, nose normal. Dental caries noted but no obvious dental abscess [] Eyes: PERRL, EOMI, conjunctiva normal, no discharge. [] Neck: Normal range of motion, no tenderness, supple, no stridor. [] Cardiovascular:Heart rate regular rhythm, no murmur [] Lungs & Thorax: Bilateral breath sounds clear to auscultation [] Abdomen: Bowel sounds normal, soft, no tenderness, no masses, no pulsatile masses. [] Skin: Warm, dry, no erythema, no rash. [] Back: No tenderness [] Extremities: No tenderness, no cyanosis, ROM intact, no edema. [] Neurologic: Alert and oriented, normal motor function, normal sensory function, no focal deficits noted. [] Psychologic: Affect normal, judgement normal, mood normal. [] Current Patient Data: Vital Signs: Vital Signs Date Time Temp Pulse Resp B/P (MAP) Pulse Ox O2 Delivery O2 Flow Rate FiO2 09/28/19 17:49 97.9 90 18 140/92 (108) 100 Room Air EKG: EKG: [] Radiology/Procedures: Radiology/Procedures: [] Course & Med Decision Making: Course & Med Decision Making Pertinent Labs and Imaging studies reviewed. (See chart for details) [] Dragon Disclaimer: ContextPlane Disclaimer: This electronic medical record was generated, in whole or in part, using a voice recognition dictation system. 0620 patient is medically stable, will place patient on clindamycin. Patient advised to follow-up with a dentist as soon as possible. He had requested if we could do a dental extraction in the ER but I let him know that that is not something we can do. Patient requesting narcotic pain medication but I did not feel comfortable doing this as this is a chronic dental problem. However I will renew his lisinopril 20 mg tablets. Departure Departure: Impression: Primary Impression: Pain, dental Additional Impressions: Elevated blood pressure reading Medication refill Disposition: HOME/RESIDENCE PRIOR TO ADM Condition: STABLE Referrals: ZACK JUNIOR RN, GNP (PCP) Patient Instructions: Dental Abscess, Managing Your High Blood Pressure Additional Instructions: Take medication as directed, call and see a dentist right away in follow-up. Take your blood pressure medication as directed as well Scripts Lisinopril (LISINOPRIL) 20 Mg Tablet 1 TAB PO DAILY for hypertension, #30 TAB 5 Refills Prov: ELLSWORTH,SILVINA M DO 09/28/19 Clindamycin Hcl (CLINDAMYCIN HCL) 150 Mg Capsule 1 CAP PO QID for dental pain for 7 Days, #28 CAP Prov: SILVINA ELLSWORTH DO 09/28/19 Justification of Admission: Justification of Admission: Justification of Admission Dx: N/A SILVINA ELLSWORTH DO Sep 28, 2019 17:57
[2019-09-28] MEDS ORDERED: ACETAMINOPHEN 325 MG TABLET PO ONE (18:15)
[2019-09-28] MEDS ORDERED: LISI-334 PO (18:27)
[2019-09-28] MEDS ORDERED: CLIN150C14 PO (18:27)
== END 2019-09-28 18:32 | disposition home or self-care (01) ==
LOC: ER 17:45
DX: K02.9 Dental caries, unspecified (principal); R03.0 Elevated blood-pressure reading, without diagnosis of hypertension; Z76.0 Encounter for issue of repeat prescription; F41.9 Anxiety disorder, unspecified; J45.909 Unspecified asthma, uncomplicated; F17.210 Nicotine dependence, cigarettes, uncomplicated; Z88.6 Allergy status to analgesic agent; Z88.8 Allergy status to other drugs, medicaments and biological substances
CPT/HCPCS: 99283

== ENCOUNTER 2019-09-30 16:46 | Emergency (ER) | payer OTHER ==
[~2019-09-30] VITALS: Ht 172.7 cm; Wt 83.1 kg
[~2019-09-30 16:46] MED LIST changes: +LISI-334 PO
[2019-09-30 16:54] VITALS: BP 130/98
[2019-09-30] MEDS ORDERED: CHLO15MO2 PO (17:11)
[2019-09-30] MEDS ORDERED: HYDR-3165 PO (17:11)
[2019-09-30] MEDS ORDERED: PRED20TA PO (17:11)
--- NOTE | 2019-09-30 17:11 | PHYS DOC ---
Past History Past Medical History: Anxiety, Asthma Past Surgical History: No Surgical History Smoking: Cigarettes Alcohol Use: None Drug Use: None General Adult EDM: Chief Complaint: DENTAL PROBLEM HPI: HPI: Patient is a [age] year old [sex] who presents with [] Review of Systems: Review of Systems: Constitutional: Denies fever or chills Eyes: Denies change in visual acuity HENT: Denies nasal congestion or sore throat Respiratory: Denies cough or shortness of breath Cardiovascular: Denies chest pain or edema GI: Denies abdominal pain, nausea, vomiting, bloody stools or diarrhea : Denies dysuria Musculoskeletal: Denies back pain or joint pain Integument: Denies rash Neurologic: Denies headache, focal weakness or sensory changes Endocrine: Denies polyuria or polydipsia Lymphatic: Denies swollen glands Psychiatric: Denies depression or anxiety Heart Score: Risk Factors: Risk Factors: DM, Current or recent (<one month) smoker, HTN, HLP, family history of CAD, obesity. Risk Scores: Score 0 - 3: 2.5% MACE over next 6 weeks - Discharge Home Score 4 - 6: 20.3% MACE over next 6 weeks - Admit for Clinical Observation Score 7 - 10: 72.7% MACE over next 6 weeks - Early Invasive Strategies Allergies: Allergies: Allergies Coded Allergies Type Severity Reaction Last Updated Verified ketorolac Allergy Severe Rash 07/05/19 Yes oxymorphone Allergy Intermediate Rash 12/25/17 Yes tramadol Allergy Intermediate rash 04/03/14 Yes trazodone Allergy Intermediate Nausea and Vomiting 04/03/14 No Physical Exam: PE: Constitutional: Well developed, well nourished, no acute distress, non-toxic appearance. [] HENT: Normocephalic, atraumatic, bilateral external ears normal, oropharynx moist, no oral exudates, nose normal. [] Eyes: PERRLA, EOMI, conjunctiva normal, no discharge. [] Neck: Normal range of motion, no tenderness, supple, no stridor. [] Cardiovascular:Heart rate regular rhythm, no murmur [] Lungs & Thorax: Bilateral breath sounds clear to auscultation [] Abdomen: Bowel sounds normal, soft, no tenderness, no masses, no pulsatile masses. [] Skin: Warm, dry, no erythema, no rash. [] Back: No tenderness, no CVA tenderness. [] Extremities: No tenderness, no cyanosis, no clubbing, ROM intact, no edema. [] Neurologic: Alert and oriented X 3, normal motor function, normal sensory function, no focal deficits noted. [] Psychologic: Affect normal, judgement normal, mood normal. [] EKG: EKG: [] Radiology/Procedures: Radiology/Procedures: [] Course & Med Decision Making: Course & Med Decision Making Pertinent Labs and Imaging studies reviewed. (See chart for details) [] Dragon Disclaimer: Dragon Disclaimer: This electronic medical record was generated, in whole or in part, using a voice recognition dictation system. Departure Departure: Impression: Primary Impression: Dentalgia Additional Impressions: Dental caries Tooth fracture Qualified Codes: S02.5XXG - Fracture of tooth (traumatic), subsequent encounter for fracture with delayed healing Disposition: HOME/RESIDENCE PRIOR TO ADM Condition: STABLE Referrals: ZACK JUNIOR RN, GNP (PCP) Patient Instructions: Dental Caries, Tooth Fracture, Toothache-Brief Scripts Chlorhexidine Gluconate (PERIDEX) 15 Ml Mouthwash 15 ML PO BID for dental infection/inflammation, #473 ML 0 Refills Prov: LISHA BRITO DO 09/30/19 Prednisone (PREDNISONE) 20 Mg Tablet 2 TAB PO DAILY for Dental inflammation, #8 TAB Start this prescription tomorrow, Friday10/01/19 Prov: LISHA BRITO DO 09/30/19 Hydrocodone Bit/Acetaminophen (NORCO 5-325 TABLET) 1 Each Tablet 0.5-1 TAB PO Q6HRS PRN for PAIN, #14 TAB Prov: LISHA BRITO DO 09/30/19 Justification of Admission: Justification of Admission: Justification of Admission Dx: N/A LISHA BRITO DO Sep 30, 2019 17:11
[2019-09-30] MEDS ORDERED: DEXAMETHASONE 4 MG TABLET PO ONE (17:45)
== END 2019-09-30 17:20 | disposition home or self-care (01) ==
LOC: ER 16:46
DX: S02.5XXG Fracture of tooth (traumatic), subsequent encounter for fracture with delayed healing (principal); K02.9 Dental caries, unspecified; J45.909 Unspecified asthma, uncomplicated; F41.9 Anxiety disorder, unspecified; Z88.5 Allergy status to narcotic agent; Z88.6 Allergy status to analgesic agent; Z88.8 Allergy status to other drugs, medicaments and biological substances; X58.XXXD Exposure to other specified factors, subsequent encounter
CPT/HCPCS: 99283; J8540

== ENCOUNTER 2019-12-30 19:18 | Emergency (ER) | payer OTHER ==
[~2019-12-30] VITALS: Ht 172.7 cm; Wt 83.1 kg
[~2019-12-30 19:18] MED LIST changes: +CHLO15MO2 PO; +PRED20TA PO
[2019-12-30 19:27] VITALS: BP 128/65
--- NOTE | 2019-12-30 19:53 | PHYS DOC ---
Past History Past Medical History: Anxiety, Asthma Past Surgical History: No Surgical History Smoking: Cigarettes Alcohol Use: None Drug Use: None General Adult EDM: Chief Complaint: DENTAL PROBLEM HPI: HPI: Aaron Bosch is a 39-year-old male who presents with dental pain. He states that started about 1 year ago and he was seeing a dentist for " twisted roots" in his right maxillary molars. He was referred to an oral surgeon to have this corrected as a dentist cannot perform the procedure. He is unable to find a surgeon who will take his insurance, and has been treated symptomatically with ibuprofen and a recent antibiotic regimen of penicillin for 1 week which he finished today. Patient states that his pain management is not controlled as is. Review of Systems: Review of Systems: Constitutional: Denies fever or chills Oral: Affirms dental pain HENT: Denies nasal congestion or sore throat Respiratory: Denies cough or shortness of breath Cardiovascular: Denies chest pain or palpitations GI: Denies abdominal pain, nausea, or vomiting : Denies dysuria or hematuria Integument: Denies rash or skin lesions Neurologic: Denies headache, focal weakness or sensory changes Complete systems were reviewed and found to be within normal limits, except as documented in this note. Allergies: Allergies: Allergies Coded Allergies Type Severity Reaction Last Updated Verified ketorolac Allergy Severe Rash 07/05/19 Yes oxymorphone Allergy Intermediate Rash 12/25/17 Yes tramadol Allergy Intermediate rash 04/03/14 Yes trazodone Allergy Intermediate Nausea and Vomiting 04/03/14 No Physical Exam: PE: Constitutional: Well developed, well nourished, no acute distress, non-toxic appearance HENT: Normocephalic, atraumatic, minimal tenderness to palpation of right maxilla Dental: Significant gingivitis along the gumline, no redness or obvious abscess, several teeth have been pulled, no sign of infection over complaint area in the right maxillary molars Eyes: PERRL, EOMI, conjunctiva normal, no discharge Neck: Normal range of motion, no tenderness, supple Lungs & Thorax: No respiratory distress, equal chest rise and fall Cardiac: Regular rate rhythm, no murmur Skin: Warm, dry, no erythema, no rash Neurologic: Alert and oriented X 3, normal motor function, normal sensory function, no focal deficits noted Psychologic: Affect normal, judgment normal Current Patient Data: Vital Signs: Vital Signs Date Time Temp Pulse Resp B/P (MAP) Pulse Ox O2 Delivery O2 Flow Rate FiO2 12/30/19 19:27 98.1 77 16 128/65 (86) 99 Room Air Course & Med Decision Making: Course & Med Decision Making Patient presented with dental pain as noted above. Given the chronic nature of the patient's complaints, he will be given Toradol for symptomatic control and discharged with instructions to continue to find an oral surgeon. Neymar Disclaimer: Neymar Disclaimer: This electronic medical record was generated, in whole or in part, using a voice recognition dictation system. Departure Departure: Impression: Primary Impression: Dentalgia Additional Impression: Medication refill Disposition: HOME/RESIDENCE PRIOR TO ADM Condition: STABLE Referrals: ZACK JUNIOR RN, GNP (PCP) Patient Instructions: Medication Refill, Emergency Department, Toothache-Brief Additional Instructions: Please follow closely with your dentist. Please continue use of your dental mouth rinse. Please use over the counter Tylenol and/or Ibuprofen for pain or discomfort. We are unable to provide you with NARCOTIC pain medication due to your recent prescription from 12/24/2019 for 30 tabs of Hydrocodone-APAP . Scripts Albuterol Sulfate (PROAIR HFA INHALER) 8.5 Gm Hfa.aer.ad 2 PUFF IH PRN Q4-6HRS PRN for wheezing, #1 INHALER 0 Refills Prov: LISHA BRITO DO 12/30/19 Prednisone (PREDNISONE) 20 Mg Tablet 2 TAB PO DAILY for dentalgia, #10 TAB Prov: LISHA BRITO DO 12/30/19 Justification of Admission: Justification of Admission: Justification of Admission Dx: N/A LISHA BRITO DO Dec 30, 2019 19:53
[2019-12-30] MEDS ORDERED: PRED20TA PO (20:15)
[2019-12-30] MEDS ORDERED: ALBU2.5V8 IH (20:19)
== END 2019-12-30 20:33 | disposition home or self-care (01) ==
LOC: ER 19:18
DX: K08.89 Other specified disorders of teeth and supporting structures (principal); K05.10 Chronic gingivitis, plaque induced; Z76.0 Encounter for issue of repeat prescription; F41.9 Anxiety disorder, unspecified; J45.909 Unspecified asthma, uncomplicated; F17.210 Nicotine dependence, cigarettes, uncomplicated; Z88.5 Allergy status to narcotic agent; Z88.6 Allergy status to analgesic agent; Z88.8 Allergy status to other drugs, medicaments and biological substances
CPT/HCPCS: 99283

== ENCOUNTER 2020-01-09 13:34 | Emergency (ER) | payer OTHER ==
[~2020-01-09] VITALS: Ht 172.7 cm; Wt 83.1 kg
[2020-01-09 13:47] VITALS: BP 140/91
[2020-01-09] MEDS ORDERED: PENI500T PO (13:53)
[2020-01-09] MEDS ORDERED: HYDR-3165 PO (13:53)
--- NOTE | 2020-01-09 13:53 | PHYS DOC ---
Past History Past Medical History: Anxiety, Asthma Past Surgical History: No Surgical History Smoking: Cigarettes Alcohol Use: None Drug Use: None General Adult EDM: Chief Complaint: DENTAL PROBLEM HPI: HPI: Patient is a 39-year-old male with chronic dental pain from a tooth eruption on the right mandibular molar area that has had aggravated over the last couple days. Patient denies any fever or drainage but has worsening pain is worse with eating and palpation. Pain is nonradiating and throbbing Review of Systems: Review of Systems: Constitutional: Denies fever or chills Eyes: Denies change in visual acuity HENT: Complains of dental pain Respiratory: Denies cough or shortness of breath Cardiovascular: Denies chest pain or edema GI: Denies abdominal pain, nausea, vomiting, bloody stools or diarrhea : Denies dysuria Musculoskeletal: Denies back pain or joint pain Integument: Denies rash Neurologic: Denies headache, focal weakness or sensory changes Endocrine: Denies polyuria or polydipsia Lymphatic: Denies swollen glands Psychiatric: Denies depression or anxiety Heart Score: Risk Factors: Risk Factors: DM, Current or recent (<one month) smoker, HTN, HLP, family history of CAD, obesity. Risk Scores: Score 0 - 3: 2.5% MACE over next 6 weeks - Discharge Home Score 4 - 6: 20.3% MACE over next 6 weeks - Admit for Clinical Observation Score 7 - 10: 72.7% MACE over next 6 weeks - Early Invasive Strategies Allergies: Allergies: Allergies Coded Allergies Type Severity Reaction Last Updated Verified ketorolac Allergy Severe Rash 07/05/19 Yes oxymorphone Allergy Intermediate Rash 12/25/17 Yes tramadol Allergy Intermediate rash 04/03/14 Yes trazodone Allergy Intermediate Nausea and Vomiting 04/03/14 No Physical Exam: PE: Constitutional: Well developed, well nourished, no acute distress, non-toxic appearance. [] HENT: Normocephalic, atraumatic, bilateral external ears normal, floor the mouth is soft there is no Giles angina, there is some swelling that is mild around a molar eruption on the right mandibular area. No drainable abscess Eyes: PERRLA, EOMI, conjunctiva normal, no discharge. [] Neck: Normal range of motion, no tenderness, supple, no stridor. [] Cardiovascular:Heart rate regular rhythm, peripheral pulses are intact cap refill is brisk Lungs & Thorax: Bilateral breath sounds clear, no respiratory distress Abdomen: Nontender nondistended Skin: Warm, dry, no erythema, no rash. [] Back: No tenderness, no CVA tenderness. [] Extremities: No tenderness, no cyanosis, no clubbing, ROM intact, no edema. [] Neurologic: Alert and oriented X 3, normal motor function, normal sensory function, no focal deficits noted. [] Psychologic: Affect normal, judgement normal, mood normal. [] EKG: EKG: [] Radiology/Procedures: Radiology/Procedures: [] Course & Med Decision Making: Course & Med Decision Making Pertinent Labs and Imaging studies reviewed. (See chart for details) [] 39-year-old male presents with dental pain. Patient will placed on antibiotics and something for pain patient need to follow-up with a dentist. There is no evidence of Giles angina Dragon Disclaimer: Dragon Disclaimer: This electronic medical record was generated, in whole or in part, using a voice recognition dictation system. Departure Departure: Impression: Primary Impression: Pain, dental Additional Impression: Infected tooth Disposition: HOME/RESIDENCE PRIOR TO ADM Condition: STABLE Referrals: ZACK JUNIOR RN, GNP (PCP) dental Patient Instructions: Dental Caries Additional Instructions: EMERGENCY DEPARTMENT GENERAL DISCHARGE INSTRUCTIONS THANK YOU for coming to [facility] Department (ED) today and trusting us with your care. We trust that you had a positive experience in our Emergency Department. If you wish to speak to the department Management you can contact the emergency department at YOUR FOLLOW UP INSTRUCTIONS ARE FOLLOWS: Do you have a private doctor? If you do not have a private doctor, please ask for a resource list of physicians or clinics that may be able to assist you with follow up care. The Emergency Physician has interpreted your x-rays. The X-ray specialist will also review them. If there is a change in the findings you will be notified in 48 hours when at all possible. A lab test or lab culture may have been done, your results will be reviewed and you will be notified if you need a change in treatment. ADDITIONAL INSTRUCTIONS AND INFORMATION Your care today has been supervised by a physician who is specially trained in emergency care. Many problems require more than one evaluation for a complete diagnosis and treatment. We recommend that you schedule your follow up appointment as recommended to ensure complete treatment of your illness or injury. If you are unable to obtain follow up care and continue to have a problem, or if your condition worsens we recommend that you return to the ED. We are not able to safely determine your condition over the phone nor are we able to give sound medical advice over the phone. For these safety reasons, if you call for medical advice we will ask you to come to the ED for further evaluation If you have any questions regarding these discharge instructions please call the ED at . SAFETY INFORMATION In the interest of safety, wellness, and injury prevention; we encourage you to wear your seatbelt, if you smoke; quit smoking, and we encourage your family to use pr otective helmet for bicycling and other sporting events that present an increased risk for head injury. IF YOUR SYMPTOMS WORSEN OR NEW SYMPTOMS DEVELOP, OR YOU HAVE CONCERNS ABOUT YOUR CONDITION; OR IF YOUR CONDITION WORSENS WHILE YOU ARE WAITING FOR YOUR FOLLOW UP APPOINTMENT; EITHER CONTACT YOUR PRIMARY CARE DOCTOR, THE PHYSICIAN WHOSE NAME AND NUMBER YOU WERE GIVEN, OR RETURN TO THE ED IMMEDIATELY. Scripts Penicillin V Potassium (PENICILLIN V POTASSIUM) 500 Mg Tablet 1 TAB PO QID for dental pain, #40 TAB Prov: CHARISMA RAMEY MD 01/09/20 Hydrocodone Bit/Acetaminophen (NORCO 5-325 TABLET) 1 Each Tablet 1 TAB PO PRN Q6HRS PRN for PAIN, #8 TAB 0 Refills Prov: CHARISMA RAMEY MD 01/09/20 Justification of Admission: Justification of Admission: Justification of Admission Dx: N/A CHARISMA RAMEY MD Jan 09, 2020 13:53
== END 2020-01-09 13:55 | disposition home or self-care (01) ==
LOC: ER 13:34
DX: K04.7 Periapical abscess without sinus (principal); F17.210 Nicotine dependence, cigarettes, uncomplicated; F41.9 Anxiety disorder, unspecified; J44.9 Chronic obstructive pulmonary disease, unspecified; Z88.6 Allergy status to analgesic agent; Z88.8 Allergy status to other drugs, medicaments and biological substances
CPT/HCPCS: 99283

== ENCOUNTER 2020-03-17 10:55 | Emergency (ER) | payer OTHER ==
[~2020-03-17] VITALS: Ht 168.9 cm; Wt 85.2 kg
--- NOTE | 2020-03-17 12:07 | PHYS DOC ---
Past History Past Medical History: Anxiety, Asthma (LISHA ALEXANDER APRN) Past Surgical History: No Surgical History (LISHA ALEXANDER APRN) Smoking: Cigarettes Alcohol Use: Rarely Drug Use: None (LISHA ALEXANDER APRN) Adult General Chief Complaint Chief Complaint: DENTAL PROBLEM HPI HPI Patient is a 39-year-old male presents emergency department reporting right upper and lower molar pain off and on for the past week and constant for the past 3 days rating a 10/10 1-10 pain scale. Patient states he used to have a dentist but no longer takes his insurance and is currently certain for a dentist. Patient states he has taken 200 mg ibuprofen at home approximately 7 AM with little relief. Patient reports a history of hypertension which he takes lisinopril for and as needed albuterol for asthma. Patient denies any surgical history, family history states his mother and father are both healthy takes no meds. Patient denies any fever or chills, nasal congestion, cough, shortness of breath, chest pains, abdominal pains. Patient denies any skin rashes focal weaknesses or headaches. Patient denies any other health concerns or physical illnesses. States no one else living in his home is having the same symptoms. Patient denies any COVID-19 symptoms, does not wish to be tested for the COVID- 19 virus today. (LISHA ALEXANDER APRN) Review of Systems Review of Systems Constitutional: Denies fever or chills Eyes: Denies change in visual acuity, redness, or eye pain HENT: Denies nasal congestion or sore throat, complains of right upper and lower rear molar pains Respiratory: Denies cough or shortness of breath Cardiovascular: No additional information not addressed in HPI GI: Denies abdominal pain, nausea, vomiting, bloody stools or diarrhea : Denies dysuria or hematuria Musculoskeletal: Denies back pain or joint pain Integument: Denies rash or skin lesions Neurologic: Denies headache, focal weakness or sensory changes Endocrine: Denies polyuria or polydipsia All other systems were reviewed and found to be within normal limits, except as documented in this note. (LISHA ALEXANDER APRN) Family History Family History States both his mother and his father are healthy and take no medications. (LISHA ALEXANDER APRN) Current Medications Current Medications Reports taking lisinopril but does not remember his dose daily for hypertension, as needed albuterol for asthma. (LISHA ALEXANDER APRN) Allergies Allergies Allergies Coded Allergies Type Severity Reaction Last Updated Verified ketorolac Allergy Severe Rash 07/05/19 Yes oxymorphone Allergy Intermediate Rash 12/25/17 Yes tramadol Allergy Intermediate rash 04/03/14 Yes trazodone Allergy Intermediate Nausea and Vomiting 04/03/14 No (LISHA ALEXANDER APRN) Physical Exam Physical Exam Constitutional: Well developed, well nourished, no acute distress, non-toxic appearance. HENT: Normocephalic, atraumatic, bilateral external ears normal, oropharynx moist, no oral exudates, nose normal. Gum swelling around right most rear upper and lower molar, poor dentition throughout, marked dental caries, small dental abscess of lower right posterior molar. No lymphedema appreciated of the head and neck. Eyes: PERRLA, EOMI, conjunctiva normal, no discharge. Neck: Normal range of motion, no tenderness, supple, no stridor. Cardiovascular:Heart rate regular rhythm, no murmur Lungs & Thorax: Bilateral breath sounds clear to auscultation Abdomen: Bowel sounds normal, soft, no tenderness, no masses, no pulsatile masses. Skin: Warm, dry, no erythema, no rash. Back: No tenderness, no CVA tenderness. Extremities: No tenderness, no cyanosis, no clubbing, ROM intact, no edema. Neurologic: Alert and oriented X 3, normal motor function, normal sensory function, no focal deficits noted. Psychologic: Affect normal, judgement normal, mood normal. (LISHA ALEXANDER APRN) Current Patient Data Vital Signs Vital Signs Date Time Temp Pulse Resp B/P (MAP) Pulse Ox O2 Delivery O2 Flow Rate FiO2 03/17/20 10:55 98.1 79 18 142/94 (110) 98 Room Air (LISHA ALEXANDER APRN) EKG EKG [] (LISHA ALEXANDER APRN) Radiology/Procedures Radiology/Procedures [] (LSIHA ALEXANDER APRN) Heart Score Risk Factors: Risk Factors: DM, Current or recent (<one month) smoker, HTN, HLP, family histo ry of CAD, obesity. Risk Scores: Risk Factors: DM, Current or recent (<one month) smoker, HTN, HLP, family history of CAD, obesity. (LISHA ALEXANDER APRN) Course & Med Decision Making Course & Med Decision Making Pertinent Labs and Imaging studies reviewed. (See chart for details) 39-year-old male presents emergency department complaining of rear molar dental pain of the right upper and lower most rear teeth. Physical examination rev ealed marked dental caries, slightly erythematous upper rear molar gum, and lower rear molar gum, small periapical abscess of the right premolar area, discussed with patient need to follow-up with dentist soon, will give dental referral, discussed with patient dental infections will start prescription for Pen-VK, ibuprofen, will treat in the emergency department with 2 5/325 mg [place]. Patient is a cigarette smoker, discussed with patient smoking cessation. Patient gave verbal understanding of discharge home instructions, prescription instructions and use, follow-up with dentist soon, patient had no further questions or concerns, patient discharged home without incident. Diagnosis of periapical abscess right rear lower molar, this is not a Malik's angina, low likelihood of magazine writer space infection, deep tissue infection, letter genetic periodontal infection, patient had no recent root canals, this is not an infection after root canal, low likelihood of retropharyngeal space infections. (LISHA ALEXANDER APRN) Course & Med Decision Making I have reviewed the TRAFFIC COORDINATOR's note and plan of care. I was available for consultation as needed during the patient's visit in the emergency department. I agree with the clinical impression, plan, and disposition. (VCITOR M SEBASTIAN DO) Dragon Disclaimer Dragon Disclaimer This electronic medical record was generated, in whole or in part, using a voice recognition dictation system. (LISHA ALEXANDER APRN) Departure Departure: Impression: Primary Impression: Infected tooth Additional Impressions: Pain, dental Tobacco abuse Tobacco abuse counseling Disposition: 01 DC HOME SELF CARE/HOMELESS Condition: GOOD Referrals: ZACK JUNIOR RN, GNP (PCP) Patient Instructions: Dental Abscess, Dental Caries, Smoking Cessation Additional Instructions: Please take prescribed medications as directed, see a dentist soon, return to emergency department worsening symptoms or other concerns. EMERGENCY DEPARTMENT GENERAL DISCHARGE INSTRUCTIONS Thank you for coming to [facility] (ED) today and trusting us with you care. We trust that you had a positivie experience in our Emergency Department. If you wish to speak to the department management, you may call the director at [phone]. YOUR FOLLOW UP INSTRUCTIONS ARE FOLLOWS: 1. Do you have a private Doctor? If you do not have a private doctor, please ask for a resource list of physicians or clinics that may be able to assist you with follow up care. 2. The Emergency Physician has interpreted your x-rays. The X-Ray specialist will also review them. If there is a change in the findings, you will be notified in 48 hours when at all possible. 3. A lab test or culture has been done, your results will be reviewed and you w ill be notified if you need a change in treatment. ADDITIONAL INSTRUCTIONS AND INFORMATION: 1. Your care today has been supervised by a physician who is specially trained in emergency care. Many problems require more than one evaluation for a complete diagnosis and treatment. We recommend that you schedule your follow up appointment as recommended to ensure complete treatment of you illness or injury. If you are unable to obtain follow up care and continue to have a problem, or if your condition worsens, we recommend that you return to the ED. 2. We are not able to safely determine your condition over the phone nor are we able to give sound medical advice over the phone. For these safety reasons, if you call for medical advice we will ask you to come to the ED for further evaluation. 3. If you have any questions regarding these discharge instructions please call the ED at [phone]. SAFETY INFORMATION: In the interest of safety, wellness, and injury prevention; we encourage you to wear your sealbelt, if you smoke; quite smoking, and we encourage family to use a protective helmet for bicycling and other sporting events that present an increased risk for head injury. IF YOUR SYMPTOMS WORSEN OR NEW SYMPTOMS DEVELOP, OR YOU HAVE CONCERNS ABOUT YOUR CONDITION; OR IF YOUR CONDITION WORSENS WHILE YOU ARE WAITING FOR YOUR FOLLOW UP APPOINTMENT; EITHER CONTACT YOUR PRIMARY CARE DOCTOR, THE PHYSICIAN WHOSE NAME AND NUMBER YOU WERE GIVEN, OR RETURN TO THE ED IMMEDIATELY. Scripts Ibuprofen (IBUPROFEN) 600 Mg Tablet 600 MG PO PRN Q6-8HRS PRN for PAIN, #20 TAB 0 Refills Prov: LISHA ALEXANDER TIPPING MACHINE OPERATOR 03/17/20 Penicillin V Potassium (PENICILLIN V POTASSIUM) 500 Mg Tablet 1 TAB PO QID for DENTAL INFECTION for 10 Days, #40 TAB Prov: LISHA ALEXANDER APRN 03/17/20 Problem Qualifiers LISHA ALEXANDER APRN Mar 17, 2020 12:07 VICTOR M SEBASTIAN DO Mar 18, 2020 08:20
[2020-03-17] MEDS ORDERED: HYDROcodone/APAP 5/325MG 1 TAB TABLET PO ONE (12:30)
[2020-03-17] MEDS ORDERED: IBUP600T16 PO (12:34)
[2020-03-17] MEDS ORDERED: PENI500T PO (12:34)
[2020-03-17 12:44] VITALS: BP 136/87
== END 2020-03-17 12:44 | disposition home or self-care (01) ==
LOC: ER 10:55
DX: K04.7 Periapical abscess without sinus (principal); Z71.6 Tobacco abuse counseling; J45.909 Unspecified asthma, uncomplicated; F41.9 Anxiety disorder, unspecified; F17.210 Nicotine dependence, cigarettes, uncomplicated; Z88.6 Allergy status to analgesic agent; Z88.5 Allergy status to narcotic agent; Z88.8 Allergy status to other drugs, medicaments and biological substances
CPT/HCPCS: 99283

== ENCOUNTER 2020-04-26 09:52 | Emergency (ER) | payer OTHER ==
[~2020-04-26] VITALS: Ht 168.9 cm; Wt 85.2 kg
[~2020-04-26 09:52] MED LIST changes: -CLIN150C14 PO; +CLIN150C15 PO; +IBUP600T16 PO
[2020-04-26 10:00] VITALS: BP 124/83
[2020-04-26] MEDS ORDERED: PENI500T PO (10:07)
--- NOTE | 2020-04-26 10:07 | PHYS DOC ---
Past History Past Medical History: Anxiety, Asthma Past Surgical History: No Surgical History Smoking: Cigarettes Alcohol Use: Rarely Drug Use: None General Adult EDM: Chief Complaint: DENTAL PROBLEM HPI: HPI: 40-year-old male presenting with dental pain. Throbbing aching pain on the right lower jaw. Nonradiating without alleviating factors. He denies drooling difficulty swallowing or neck swelling. He is currently trying to get into a oral maxillofacial surgeon after seeing a dentist for removal of the tooth. Review of systems negative for chest pain shortness of breath headache fever chills or vomiting. All other review of systems negative. ED course: 40-year-old male presenting with dental pain. We will refer him to dentistry/OMFS today for further treatment and care. In the interim we can prescribe him some antibiotics to cover for infection. Allergies: Allergies: Allergies Coded Allergies Type Severity Reaction Last Updated Verified ketorolac Allergy Severe Rash 07/05/19 Yes oxymorphone Allergy Intermediate Rash 12/25/17 Yes tramadol Allergy Intermediate rash 04/03/14 Yes trazodone Allergy Intermediate Nausea and Vomiting 04/03/14 No Physical Exam: PE: Constitutional: Well developed, well nourished, no acute distress, non-toxic appearance. [] HENT: Normocephalic, atraumatic, bilateral external ears normal, oropharynx moist, no oral exudates, nose normal. Poor dentition. No abscess. Uvula midline. Swallowing secretions in the examination room without difficulty. No distress. Neck is nontender without palpable masses. No crepitus to palpation of the neck wall. Eyes: PERRLA, EOMI, conjunctiva normal, no discharge. [] Neck: Normal range of motion, no tenderness, supple, no stridor. [] Cardiovascular:Heart rate regular rhythm, no murmur [] Lungs & Thorax: Bilateral breath sounds clear to auscultation [] Abdomen: Bowel sounds normal, soft, no tenderness, no masses, no pulsatile masses. [] Skin: Warm, dry, no erythema, no rash. [] Back: No tenderness, no CVA tenderness. [] Extremities: No tenderness, no cyanosis, no clubbing, ROM intact, no edema. [] Neurologic: Alert and oriented X 3, normal motor function, normal sensory function, no focal deficits noted. [] Psychologic: Affect normal, judgement normal, mood normal. [] EKG: EKG: [] Radiology/Procedures: Radiology/Procedures: [] Heart Score: Risk Factors: Risk Factors: DM, Current or recent (<one month) smoker, HTN, HLP, family history of CAD, obesity. Risk Scores: Score 0 - 3: 2.5% MACE over next 6 weeks - Discharge Home Score 4 - 6: 20.3% MACE over next 6 weeks - Admit for Clinical Observation Score 7 - 10: 72.7% MACE over next 6 weeks - Early Invasive Strategies Course & Med Decision Making: Course & Med Decision Making Pertinent Labs and Imaging studies reviewed. (See chart for details) [] Dragon Disclaimer: Dragon Disclaimer: This electronic medical record was generated, in whole or in part, using a voice recognition dictation system. Departure Departure: Impression: Primary Impression: Pain, dental Disposition: 01 DC HOME SELF CARE/HOMELESS Condition: STABLE Referrals: ZACK JUNIOR RN, GNP (PCP) Patient Instructions: Dental Pain Scripts Penicillin V Potassium (PENICILLIN V POTASSIUM) 500 Mg Tablet 1 TAB PO BID for dental pain, #10 TAB 0 Refills Prov: JAYESH SKAGGS MD 04/26/20 JAYESH SKAGGS MD Apr 26, 2020 10:07
== END 2020-04-26 10:14 | disposition home or self-care (01) ==
LOC: ER 09:52
DX: K08.89 Other specified disorders of teeth and supporting structures (principal); R68.84 Jaw pain; F41.9 Anxiety disorder, unspecified; J45.909 Unspecified asthma, uncomplicated; F17.210 Nicotine dependence, cigarettes, uncomplicated; Z88.5 Allergy status to narcotic agent; Z88.8 Allergy status to other drugs, medicaments and biological substances; Z88.6 Allergy status to analgesic agent
CPT/HCPCS: 99283

== ENCOUNTER 2020-08-21 23:41 | Emergency (ER) | payer OTHER ==
[~2020-08-21] VITALS: Ht 168.9 cm; Wt 85.2 kg
[~2020-08-21 23:41] MED LIST changes: -LISI-334 PO; +LISI20TA18 PO
[2020-08-21 23:50] VITALS: BP 124/83
[2020-08-22] MEDS ORDERED: HYDR-2759 PO (00:26)
[2020-08-22] MEDS ORDERED: AMOX1TAB61 PO (00:26)
--- NOTE | 2020-08-22 00:27 | PHYS DOC ---
Past History Past Medical History: Anxiety, Asthma Past Surgical History: No Surgical History Smoking: Cigarettes Alcohol Use: Rarely Drug Use: None General Adult EDM: Chief Complaint: DENTAL PROBLEM HPI: HPI: 40-year-old male presents with right upper dental pain. Patient is concerned that he has another dental infection. He tells me that I saw him a week or 2 ago for infection in another part of his mouth. That has improved but now he is having trouble on the other side. He does have an appointment with his doctor later this week. He normally takes as needed pain medication for a back problem but he is also out of that medication so his dental pain is worse since he does not have medicine. He denies fever or chills. He has no other complaints at this time. Review of Systems: Review of Systems: Constitutional: Denies fever or chills Eyes: Denies change in visual acuity HENT: Denies nasal congestion or sore throat. Dental pain Respiratory: Denies cough or shortness of breath Cardiovascular: Denies chest pain or edema GI: Denies abdominal pain, nausea, vomiting, bloody stools or diarrhea : Denies dysuria Musculoskeletal: Denies back pain or joint pain Integument: Denies rash Neurologic: Denies headache, focal weakness or sensory changes Endocrine: Denies polyuria or polydipsia Lymphatic: Denies swollen glands Psychiatric: Denies depression or anxiety Allergies: Allergies: Allergies Coded Allergies Type Severity Reaction Last Updated Verified ketorolac Allergy Severe Rash 07/05/19 Yes oxymorphone Allergy Intermediate Rash 12/25/17 Yes tramadol Allergy Intermediate rash 04/03/14 Yes trazodone Allergy Intermediate Nausea and Vomiting 04/03/14 No Physical Exam: PE: Constitutional: Well developed, well nourished, no acute distress, non-toxic appearance. [] HENT: Normocephalic, atraumatic, bilateral external ears normal, oropharynx moist, no oral exudates, nose normal. Right upper quadrant tooth #2 with erythematous gums. No palpable abscess. [] Eyes: PERRLA, EOMI, conjunctiva normal, no discharge. [] Neck: Normal range of motion, no tenderness, supple, no stridor. [] Cardiovascular:Heart rate regular rhythm, no murmur [] Lungs & Thorax: Bilateral breath sounds clear to auscultation [] Abdomen: Bowel sounds normal, soft, no tenderness, no masses, no pulsatile masses. [] Skin: Warm, dry, no erythema, no rash. [] Back: No tenderness, no CVA tenderness. [] Extremities: No tenderness, no cyanosis, no clubbing, ROM intact, no edema. [] Neurologic: Alert and oriented X 3, normal motor function, normal sensory function, no focal deficits noted. [] Psychologic: Affect normal, judgement normal, mood normal. [] EKG: EKG: [] Radiology/Procedures: Radiology/Procedures: [] Heart Score: C/O Chest Pain: N/A Risk Factors: Risk Factors: DM, Current or recent (<one month) smoker, HTN, HLP, family history of CAD, obesity. Risk Scores: Score 0 - 3: 2.5% MACE over next 6 weeks - Discharge Home Score 4 - 6: 20.3% MACE over next 6 weeks - Admit for Clinical Observation Score 7 - 10: 72.7% MACE over next 6 weeks - Early Invasive Strategies Course & Med Decision Making: Course & Med Decision Making Pertinent Labs and Imaging studies reviewed. (See chart for details. I will place the patient on Augmentin for 7 days and give the first dose in the ED. I will also give him a prescription for Adrian 5/325. He is stable for discharge at this time. [] Neymar Disclaimer: Neymar Disclaimer: This electronic medical record was generated, in whole or in part, using a voice recognition dictation system. Departure Departure: Impression: Primary Impression: Infected tooth Disposition: HOME / SELF CARE / HOMELESS Condition: STABLE Referrals: STERLING SOLORZANO (PCP) Patient Instructions: Dental Pain, [id number] Scripts Amoxicillin/Potassium Clav (AUGMENTIN 875-125 TABLET) 1 Each Tablet 1 TAB PO BID for dental infection for 7 Days, #14 TAB 0 Refills Prov: MILTON ASHRAF DO 08/22/20 Hydrocodone/Acetaminophen (Hydrocodone-Acetamin 5-325 mg) 1 Each Tablet 1 EACH PO Q4-6HRS PRN for PAIN, #10 TAB Prov: MILTON ASHRAF DO 08/22/20 MILTON ASHRAF DO August 22, 2020 00:27
[2020-08-22] MEDS ORDERED: ALBU2.5V8 IH (00:40)
[2020-08-22] MEDS ORDERED: HYDROcodone/APAP 5/325MG 1 TAB TABLET PO ONE (01:00)
[2020-08-22] MEDS ORDERED: AMOXICILLIN/K CLAV 875/125MG TABLET. PO ONE (01:00)
== END 2020-08-22 00:50 | disposition home or self-care (01) ==
LOC: ER 23:41
DX: K04.7 Periapical abscess without sinus (principal); J45.909 Unspecified asthma, uncomplicated; F41.9 Anxiety disorder, unspecified; Z88.6 Allergy status to analgesic agent; Z88.8 Allergy status to other drugs, medicaments and biological substances
CPT/HCPCS: 99283-25

== ENCOUNTER 2020-08-31 13:21 | Emergency (ER) | payer OTHER ==
[~2020-08-31] VITALS: Ht 167.6 cm; Wt 89.0 kg
[~2020-08-31 13:21] MED LIST changes: +AMOX1TAB61 PO; +HYDR-2759 PO
[2020-08-31 13:38] VITALS: BP 143/87
--- NOTE | 2020-08-31 14:10 | PHYS DOC ---
Past History Past Medical History: Asthma Additional Past Medical Histor: chronic back pain; bad teeth Past Surgical History: No Surgical History Smoking: Cigarettes Alcohol Use: None Drug Use: None Adult General Chief Complaint Chief Complaint: DENTAL PROBLEM HPI HPI Patient is a 40-year-old male who presents emergency department complaining of right and left lower dental pain. Patient states he was seen here on 21 August and was given a prescription for Augmentin which did not seem to help. Patient states he is unable to obtain a dental appointment because he only has [place] Medicaid and no one will accept His Medicaid any longer. Patient denies any drooling, loss of sensation to his tongue or mouth. Patient denies numbness or tingling to his face. Patient denies any problems speaking or swallowing. Patient denies any recent fever or chills. Patient denies any other physical complaints or physical concerns. Review of Systems Review of Systems 14 body systems of review of systems have been reviewed. See HPI for pertinent positives and negative responses, otherwise all other systems are negative, nonpertinent or noncontributory. Allergies Allergies Allergies Coded Allergies Type Severity Reaction Last Updated Verified ketorolac Allergy Severe Rash 08/22/20 Yes oxymorphone Allergy Intermediate Rash 08/22/20 Yes tramadol Allergy Intermediate rash 08/22/20 Yes trazodone Allergy Intermediate Nausea and Vomiting 08/22/20 No Physical Exam Physical Exam Constitutional: Well developed, well nourished, no acute distress, non-toxic appearance. 40-year-old male holding his jaw with his hand during physical examination. HENT: Normocephalic, atraumatic, bilateral external ears normal, oropharynx moist, no oral exudates, nose normal. No drooling, no trismus appreciated, no deep tissue infectious process of the oropharynx appreciated, patient speaking in normal voice tones, #30 tooth missing with purulent drainage from the gum surface, no swelling of the gum is appreciated, pain to palpation and movement of tooth #18, patient has marked dental caries with teeth and multiple stages of decay. Eyes: PERRLA, EOMI, conjunctiva normal, no discharge. Neck: Normal range of motion, no tenderness, supple, no stridor. No nuchal rigidity, no meningismus signs. Cardiovascular: Distal cap refill less than 2 seconds, no cyanosis appreciated. Lungs & Thorax: Patient is in no respiratory distress. Skin: Warm, dry, no erythema, no rash. Extremities: No tenderness, no cyanosis, no clubbing, ROM intact, no edema. Neurologic: Alert and oriented X 3, normal motor function, normal sensory function, no focal deficits noted. Psychologic: Affect normal, judgement normal, mood normal. Current Patient Data Vital Signs Vital Signs Date Time Temp Pulse Resp B/P (MAP) Pulse Ox O2 Delivery O2 Flow Rate FiO2 08/31/20 13:38 97.1 97 16 143/87 (105) 97 Room Air EKG EKG [] Radiology/Procedures Radiology/Procedures [] Heart Score C/O Chest Pain: No Risk Factors: Risk Factors: DM, Current or recent (<one month) smoker, HTN, HLP, family history of CAD, obesity. Risk Scores: Risk Factors: DM, Current or recent (<one month) smoker, HTN, HLP, family history of CAD, obesity. Course & Med Decision Making Course & Med Decision Making Pertinent Labs and Imaging studies reviewed. (See chart for details) 40-year-old male, vital signs reviewed, presents emergency department for ongoing dental pains. Physical examination concerning for dental abscess, dental caries, pulpitis. Discussed with patient will give one Bushnell and one 600 mg Motrin, 450 mg clindamycin in ED. Discussed with patient will give prescription for 6 tablets of Bushnell at home, Peridex mouthwash, Hurricaine spray, 450 mg clindamycin three times a day for 10 days. Discussed with patient need to follow-up with dentist, patient was given a dental referral list handed to him by me. Patient gave verbal understanding discharge home instructions, medication use, follow-up with dentist soon, patient had no further questions or concerns, was thankful and states he is ready to go home, patient was discharged home without incident. Dragon Disclaimer Dragon Disclaimer This electronic medical record was generated, in whole or in part, using a voice recognition dictation system. Departure Departure: Impression: Primary Impression: Infected tooth Additional Impressions: Pain, dental Dental caries Pulpitis Disposition: HOME / SELF CARE / HOMELESS Condition: GOOD Referrals: STERLING SOLORZANO (PCP) Patient Instructions: Dental Abscess, Dental Caries, Dental Pain Additional Instructions: You are seen in the emergency department today for a dental infection, I am starting you on clindamycin 450 mg three times a day for 10 days, I am also prescribing you Peridex mouthwash as we discussed along with Hurricaine spray to use as needed for severe pain. I am prescribing you 600 mg Motrin you can take three times a day as needed for pain along with 6 tablets of 5/325 Bushnell for severe pain. I have given you a list of dental clinics that accept your insurance, please call today for an appointment soon. Return to the emergency department for worsening symptoms or other concerns. EMERGENCY DEPARTMENT GENERAL DISCHARGE INSTRUCTIONS Thank you for coming to [facility] (ED) today and trusting us with you care. We trust that you had a positivie experience in our Emergency Department. If you wish to speak to the department management, you may call the director at [phone]. YOUR FOLLOW UP INSTRUCTIONS ARE FOLLOWS: 1. Do you have a private Doctor? If you do not have a private doctor, please ask for a resource list of physicians or clinics that may be able to assist you with follow up care. 2. The Emergency Physician has interpreted your x-rays. The X-Ray specialist will also review them. If there is a change in the findings, you will be notified in 48 hours when at all possible. 3. A lab test or culture has been done, your results will be reviewed and you will be notified if you need a change in treatment. ADDITIONAL INSTRUCTIONS AND INFORMATION: 1. Your care today has been supervised by a physician who is specially trained in emergency care. Many problems require more than one evaluation for a complete diagnosis and treatment. We recommend that you schedule your follow up appointment as recommended to ensure complete treatment of you illness or injury. If you are unable to obtain follow up care and continue to have a problem, or if your condition worsens, we recommend that you return to the ED. 2. We are not able to safely determine your condition over the phone nor are we able to give sound medical advice over the phone. For these safety reasons, if you call for medical advice we will ask you to come to the ED for further evaluation. 3. If you have any questions regarding these discharge instructions please call the ED at [phone]. SAFETY INFORMATION: In the interest of safety, wellness, and injury prevention; we encourage you to wear your sealbelt, if you smoke; quite smoking, and we encourage family to use a protective helmet for bicycling and other sporting events that present an increased risk for head injury. IF YOUR SYMPTOMS WORSEN OR NEW SYMPTOMS DEVELOP, OR YOU HAVE CONCERNS ABOUT YOUR CONDITION; OR IF YOUR CONDITION WORSENS WHILE YOU ARE WAITING FOR YOUR FOLLOW UP APPOINTMENT; EITHER CONTACT YOUR PRIMARY CARE DOCTOR, THE PHYSICIAN WHOSE NAME AND NUMBER YOU WERE GIVEN, OR RETURN TO THE ED IMMEDIATELY. Scripts Hydrocodone Bit/Acetaminophen (HYDROCODONE-APAP 5-325 ) 1 Each Tablet 1 TAB PO PRN Q6HRS PRN for PAIN, #6 TAB 0 Refills Prov: LISHA ALEXANDER APRN 08/31/20 Ibuprofen (IBUPROFEN) 600 Mg Tablet 600 MG PO TID PRN PRN for DENTAL PAIN, #20 TAB 0 Refills Prov: LISHA ALEXANDER APRN 08/31/20 Benzocaine (HURRICAINE) 57 Gm [place] 57 GM MM TID PRN PRN for DENTAL PAIN, #1 BOTTLE 0 Refills Prov: LISHA ALEXANDER APRN 08/31/20 Clindamycin Hcl (CLINDAMYCIN HCL) 150 Mg Capsule 450 MG PO TID for DENTAL INFECTION for 10 Days, #90 CAP 0 Refills Prov: LISHA ALEXANDER APRN 08/31/20 Problem Qualifiers LISHA ALEXANDER APRN August 31, 2020 14:10
[2020-08-31] MEDS ORDERED: IBUPROFEN 600 MG TABLET. PO ONE (14:15)
[2020-08-31] MEDS ORDERED: HYDROcodone/APAP 5/325MG 1 TAB TABLET PO ONE (14:15)
[2020-08-31] MEDS ORDERED: CLINDAMYCIN HCL 150 MG CAPSULE PO ONE (14:15)
[2020-08-31] MEDS ORDERED: HYDR-2155 PO (14:29)
[2020-08-31] MEDS ORDERED: BENZ57SP MM (14:29)
[2020-08-31] MEDS ORDERED: CLIN150C15 PO (14:29)
[2020-08-31] MEDS ORDERED: IBUP600T16 PO (14:29)
== END 2020-08-31 14:37 | disposition home or self-care (01) ==
LOC: ER 13:21
DX: K02.9 Dental caries, unspecified (principal); K04.01 Reversible pulpitis; F17.210 Nicotine dependence, cigarettes, uncomplicated; J45.909 Unspecified asthma, uncomplicated; Z88.8 Allergy status to other drugs, medicaments and biological substances
CPT/HCPCS: 99284-25

== ENCOUNTER 2020-09-08 21:11 | Emergency (ER) | payer OTHER ==
[~2020-09-08] VITALS: Ht 167.6 cm; Wt 92.2 kg
[~2020-09-08 21:11] MED LIST changes: +BENZ57SP MM; +HYDR-2155 PO
--- NOTE | 2020-09-08 21:33 | PHYS DOC ---
Past History Past Medical History: Asthma Additional Past Medical Histor: chronic back pain; bad teeth Past Surgical History: No Surgical History Smoking: Cigarettes Alcohol Use: None Drug Use: None General Adult HPI: HPI: "These teeth in back are killing me...face swollen... I am take Clindamycin.. Patient is a 40 year old male who presents with above hx and complaints of dental pain. Pt. localized area of primary discomfort in 31 and 32 teeth. But has multiple other areas of dental decay. No trismus. Adenopathy at angle of mandibles. Facial swelling over right lower mandible. The patient has extensive gingivitis. Patient denies any travel. Patient denies any immunosuppression. Patient denies any specific ill contacts. Patient is not made any follow-up appointments with dentist. Patient does smoke. Patient has been seen multiple times in the ED for dental pain complaints. Review of Systems: Review of Systems: Constitutional: Denies fever or chills Eyes: Denies change in visual acuity HENT: Denies nasal congestion or sore throat. Complains of dental pain Respiratory: Denies cough or shortness of breath Cardiovascular: Denies chest pain or edema GI: Denies abdominal pain, nausea, vomiting, bloody stools or diarrhea : Denies dysuria Musculoskeletal: Denies back pain or joint pain Integument: Denies rash Neurologic: Denies headache, focal weakness or sensory changes Endocrine: Denies polyuria or polydipsia Lymphatic: Denies swollen glands Psychiatric: Denies depression or anxiety Family History: Family History: Noncontributory to presentation Current Medications: Current Meds: See nursing for home meds. Is taking clindamycin. Allergies: Allergies: Allergies Coded Allergies Type Severity Reaction Last Updated Verified ketorolac Allergy Severe Rash 08/22/20 Yes oxymorphone Allergy Intermediate Rash 08/22/20 Yes tramadol Allergy Intermediate rash 08/22/20 Yes trazodone Allergy Intermediate Nausea and Vomiting 08/22/20 No Physical Exam: PE: Constitutional: Moderate acute distress, non-toxic appearance. [] HENT: Normocephalic, atraumatic, bilateral external ears normal, oropharynx moist, no oral exudates, nose normal. Multiple areas of dental decay and gingivitis. Primary areas of pain is area of teeth 31 and 32. No trismus. Facial swelling right mandible Eyes: PERRLA, EOMI, conjunctiva normal, no discharge. [] Neck: Normal range of motion, no tenderness, supple, no stridor. Some adenopathy in the cervical chain upper right Cardiovascular:Heart rate regular rhythm, no murmur [] Lungs & Thorax: Bilateral breath sounds equal apex with few scattered wheezes on auscultation [] Abdomen: Bowel sounds normal, soft, no tenderness, no masses, no pulsatile masses. [] Skin: Warm, dry, no erythema, no rash. [] Back: No tenderness, no CVA tenderness. [] Extremities: No tenderness, no cyanosis, no clubbing, ROM intact, no edema. [] Neurologic: Alert and oriented X 3, normal motor function, normal sensory function, no focal deficits noted. [] Psychologic: Affect anxious , judgement normal, mood normal. [] EKG: EKG: [] Radiology/Procedures: Radiology/Procedures: [] Heart Score: C/O Chest Pain: N/A Risk Factors: Risk Factors: DM, Current or recent (<one month) smoker, HTN, HLP, family history of CAD, obesity. Risk Scores: Score 0 - 3: 2.5% MACE over next 6 weeks - Discharge Home Score 4 - 6: 20.3% MACE over next 6 weeks - Admit for Clinical Observation Score 7 - 10: 72.7% MACE over next 6 weeks - Early Invasive Strategies Course & Med Decision Making: Course & Med Decision Making Pertinent Labs and Imaging studies reviewed. (See chart for details) Advised patient nothing we do in the emergency room tonight will fix his underlying cause of his pain. Must have offending teeth extracted. Follow-up with dentist or oral surgeon to have the teeth and 30 132 removed. Patient continue his clindamycin. Patient take Tylenol and ibuprofen for pain. Patient return if any concerns. Impression: 1. Dental pain 2. Dental infection [] Dragon Disclaimer: Dragon Disclaimer: This electronic medical record was generated, in whole or in part, using a voice recognition dictation system. Departure Departure: Referrals: NON,STAFF (PCP) Dragon Disclaimer This chart was dictated in whole or in part using Voice Recognition software in a busy, high-work load, and often noisy Emergency Department environment. It may contain unintended and wholly unrecognized errors or omissions. DUYEN KERR MD September 08, 2020 21:33
[2020-09-08] MEDS ORDERED: HYDROcodon/IBUPROFEN 7.5/200MG 1 TAB TABLET PO ONE (21:45)
[2020-09-08] MEDS ORDERED: cefTRIAXone IM 1 GM VIAL IM ONE (21:45)
[2020-09-08 22:35] VITALS: BP 160/89
== END 2020-09-08 22:47 | disposition home or self-care (01) ==
LOC: ER 21:11
DX: K04.7 Periapical abscess without sinus (principal); J45.909 Unspecified asthma, uncomplicated; F17.210 Nicotine dependence, cigarettes, uncomplicated; Z88.8 Allergy status to other drugs, medicaments and biological substances
CPT/HCPCS: 96372; 99283; J0696

== ENCOUNTER 2020-10-17 08:07 | Emergency (ER) | payer OTHER ==
[~2020-10-17] VITALS: Ht 167.6 cm; Wt 92.2 kg
[2020-10-17 08:12] VITALS: BP 138/88
--- NOTE | 2020-10-17 08:44 | PHYS DOC ---
Past History Past Medical History: Asthma, Hypertension Additional Past Medical Histor: chronic back pain; bad teeth Past Surgical History: No Surgical History Smoking: Cigarettes Alcohol Use: None Drug Use: None General Adult EDM: Chief Complaint: Sore throat HPI: HPI: 40-year-old male presents with sore throat. Patient tells me he had a sore throat and noticed that one of his tonsils looked really large. He had some clindamycin left from a dental infection prescription and took some. He does not tell me how many doses. He still has anterior throat pain and thinks he may have swollen lymph nodes. He denies fever or chills. He continues to have dental issues which is a longstanding problem. Review of Systems: Review of Systems: Constitutional: Denies fever or chills Eyes: Denies change in visual acuity HENT: sore throat Respiratory: Denies cough or shortness of breath Cardiovascular: Denies chest pain or edema GI: Denies abdominal pain, nausea, vomiting, bloody stools or diarrhea : Denies dysuria Musculoskeletal: Denies back pain or joint pain Integument: Denies rash Neurologic: Denies headache, focal weakness or sensory changes Endocrine: Denies polyuria or polydipsia Lymphatic: Denies swollen glands Psychiatric: Denies depression or anxiety Allergies: Allergies: Allergies Coded Allergies Type Severity Reaction Last Updated Verified ketorolac Allergy Severe Rash 08/22/20 Yes oxymorphone Allergy Intermediate Rash 08/22/20 Yes tramadol Allergy Intermediate rash 08/22/20 Yes trazodone Allergy Intermediate Nausea and Vomiting 08/22/20 No gabapentin Allergy Mild nausea 09/08/20 Yes Physical Exam: PE: Constitutional: Well developed, well nourished, no acute distress, non-toxic appearance. [] HENT: Normocephalic, atraumatic, bilateral external ears normal, oropharynx without erythema or obvious tonsillar exudates, nose normal. [] Eyes: PERRLA, EOMI, conjunctiva normal, no discharge. [] Neck: Normal range of motion, mild tenderness over the anterior cervical lymph nodes, supple, no stridor. Prominence of the thyroid gland. [] Cardiovascular: Heart rate regular rhythm, no murmur [] Lungs & Thorax: Bilateral breath sounds clear to auscultation [] Abdomen: Bowel sounds normal, soft, no tenderness, no masses, no pulsatile masses. [] Skin: Warm, dry, no erythema, no rash. [] Back: No tenderness, no CVA tenderness. [] Extremities: No tenderness, no cyanosis, no clubbing, ROM intact, no edema. [] Neurologic: Alert and oriented X 3, normal motor function, normal sensory function, no focal deficits noted. [] Psychologic: Affect normal, judgement normal, mood normal. [] Current Patient Data: Vital Signs: Vital Signs Date Time Temp Pulse Resp B/P (MAP) Pulse Ox O2 Delivery O2 Flow Rate FiO2 10/17/20 08:12 98.2 95 16 138/88 100 Room Air EKG: EKG: [] Radiology/Procedures: Radiology/Procedures: [] Heart Score: C/O Chest Pain: N/A Risk Factors: Risk Factors: DM, Current or recent (<one month) smoker, HTN, HLP, family history of CAD, obesity. Risk Scores: Score 0 - 3: 2.5% MACE over next 6 weeks - Discharge Home Score 4 - 6: 20.3% MACE over next 6 weeks - Admit for Clinical Observation Score 7 - 10: 72.7% MACE over next 6 weeks - Early Invasive Strategies Course & Med Decision Making: Course & Med Decision Making Pertinent Labs and Imaging studies reviewed. (See chart for details) The patient's rapid strep is negative. Clindamycin he took may have treated strep or may have been unrelated. The patient states that he feels like his mouth is "ringing". Not sure what this means. I have stressed to him that he needs to continue to work through his insurance issues so that he can get to a dentist. He also needs to have a primary care physician for regular care to potentially look into his prominent thyroid. He is stable for discharge at this time. [] Dragon Disclaimer: Dragon Disclaimer: This electronic medical record was generated, in whole or in part, using a voice recognition dictation system. Departure Departure: Impression: Primary Impression: Sore throat Additional Impression: Pain, dental Disposition: HOME / SELF CARE / HOMELESS Condition: STABLE Referrals: PCP,NO (PCP) Patient Instructions: Sore Throat, [id number] MILTON ASHRAF DO Oct 17, 2020 08:44
== END 2020-10-17 09:28 | disposition home or self-care (01) ==
LOC: ER 08:07
DX: J02.9 Acute pharyngitis, unspecified (principal); K08.89 Other specified disorders of teeth and supporting structures; J45.909 Unspecified asthma, uncomplicated; I10 Essential (primary) hypertension; G89.29 Other chronic pain; F17.210 Nicotine dependence, cigarettes, uncomplicated; Z88.5 Allergy status to narcotic agent; Z88.8 Allergy status to other drugs, medicaments and biological substances
CPT/HCPCS: 87070; 87880; 99283

== ENCOUNTER 2020-11-09 14:50 | Emergency (ER) | payer OTHER | END 2020-11-09 17:26 | disposition left against medical advice (07) | LOC: ER 14:50 | DX: K08.89 Other specified disorders of teeth and supporting structures (principal); Z53.21 Procedure and treatment not carried out due to patient leaving prior to being seen by health care provider ==

== ENCOUNTER 2020-12-12 05:01 | Emergency (ER) | payer OTHER ==
[~2020-12-12] VITALS: Ht 167.6 cm; Wt 92.2 kg
[~2020-12-12 05:01] MED LIST changes: -CLIN150C15 PO; +CLIN150C16 PO
[2020-12-12 05:26] VITALS: BP 138/100
--- NOTE | 2020-12-12 05:29 | PHYS DOC ---
Past History Past Medical History: Asthma, Hypertension Additional Past Medical Histor: chronic back pain; bad teeth Past Surgical History: No Surgical History Smoking: Cigarettes Alcohol Use: None Drug Use: None General Adult EDM: Chief Complaint: ABDOMINAL PAIN HPI: HPI: "... I got bad dental pain.." Patient is a 40 year old male who presents with above hx and complaints of abdomen pain at check-in but by the time he arrived in room 1 , his complaints change to dental pain. Patient has multiple areas of dental decay and gingivitis. No trismus. No recent travel. No significant ill contacts. No history of immunosuppression. Patient and accompanied with his significant other Leonie Walker who is also complaining of dental pain. Patient does have past medical history of anxiety, asthma, depression, hypertension, tobacco use use, and dental decay and pain.. Review of Systems: Review of Systems: Constitutional: Denies fever or chills Eyes: Denies change in visual acuity HENT: Denies nasal congestion or sore throat. Has complains of dental pain Respiratory: Denies cough or shortness of breath Cardiovascular: Denies chest pain or edema GI: Denies abdominal pain, nausea, vomiting, bloody stools or diarrhea : Denies dysuria Musculoskeletal: Denies back pain or joint pain Integument: Denies rash Neurologic: Denies headache, focal weakness or sensory changes Endocrine: Denies polyuria or polydipsia Lymphatic: Denies swollen glands Psychiatric: Denies depression or anxiety Family History: Family History: Noncontributory to presentation Current Medications: Current Meds: See nursing for home meds Allergies: Allergies: Allergies Coded Allergies Type Severity Reaction Last Updated Verified ketorolac Allergy Severe Rash 08/22/20 Yes oxymorphone Allergy Intermediate Rash 08/22/20 Yes tramadol Allergy Intermediate rash 08/22/20 Yes trazodone Allergy Intermediate Nausea and Vomiting 08/22/20 No gabapentin Allergy Mild nausea 09/08/20 Yes Physical Exam: PE: Constitutional: , no acute distress, non-toxic appearance. [] HENT: Normocephalic, atraumatic, bilateral external ears normal, oropharynx moist, no oral exudates, nose normal. Multiple areas of dental decay gingivitis Eyes: PERRLA, EOMI, conjunctiva normal, no discharge. [] Neck: Normal range of motion, no tenderness, supple, no stridor. [] Cardiovascular:Heart rate regular rhythm, no murmur [] Lungs & Thorax: Bilateral breath sounds equal apex with scattered wheezes on auscultation [] Abdomen: Bowel sounds normal, soft, no tenderness, no masses, no pulsatile masses. [] Skin: Warm, dry, no erythema, no rash. [] Back: No tenderness, no CVA tenderness. [] Extremities: No tenderness, no cyanosis, no clubbing, ROM intact, no edema. [] Neurologic: Alert and oriented X 3, normal motor function, normal sensory function, no focal deficits noted. [] Psychologic: Affect normal, judgement normal, mood normal. [] EKG: EKG: [] Radiology/Procedures: Radiology/Procedures: [] Heart Score: C/O Chest Pain: N/A Risk Factors: Risk Factors: DM, Current or recent (<one month) smoker, HTN, HLP, family history of CAD, obesity. Risk Scores: Score 0 - 3: 2.5% MACE over next 6 weeks - Discharge Home Score 4 - 6: 20.3% MACE over next 6 weeks - Admit for Clinical Observation Score 7 - 10: 72.7% MACE over next 6 weeks - Early Invasive Strategies Course & Med Decision Making: Course & Med Decision Making Pertinent Labs and Imaging studies reviewed. (See chart for details) Patient take Keflex 500 mg 3 times a day. Patient follow-up with dentist. Patient take Tylenol and ibuprofen for pain. If unable to get into the dentist locally consider follow-up with [facility] dental school or oral surgery. Courage patient stop smoking. Impression: 1. Dental pain 2. Narcotic seeking behaviors 3. Hx. of Asthma [] Dragon Disclaimer: Neymar Disclaimer: This electronic medical record was generated, in whole or in part, using a voice recognition dictation system. Departure Departure: Referrals: PCP,MAHOGANY (PCP) Scripts Famotidine (PEPCID) 20 Mg Tablet 20 MG PO BID for gerd for 30 Days, #60 TAB Prov: DUYEN KERR MD 12/12/20 Cephalexin (KEFLEX) 500 Mg Capsule 500 MG PO TID for dental infection for 10 Days, #30 CAP Prov: DUYEN KERR MD 12/12/20 Neymar Disclaimer This chart was dictated in whole or in part using Voice Recognition software in a busy, high-work load, and often noisy Emergency Department environment. It may contain unintended and wholly unrecognized errors or omissions. DUYEN KERR MD Dec 12, 2020 05:29
[2020-12-12] MEDS ORDERED: FAMO-63 PO (05:49)
[2020-12-12] MEDS ORDERED: CEPH500C PO (05:49)
[2020-12-12] MEDS: oxyCODONE/APAP 5/325 1 TAB TABLET PO ONE (06:00)
[2020-12-12] MEDS: FAMOTIDINE 20 MG TABLET PO ONE (06:01)
[2020-12-12] MEDS: MAGNESIUM HYDROXIDE 2,400 MG/30 ML ORAL.SUSP. PO ONE (06:01)
[2020-12-12] MEDS: CEPHALEXIN 250 MG CAPSULE PO ONE (06:07)
== END 2020-12-12 06:15 | disposition home or self-care (01) ==
LOC: ER 05:03
DX: R10.9 Unspecified abdominal pain (principal); J45.909 Unspecified asthma, uncomplicated; I10 Essential (primary) hypertension; F17.210 Nicotine dependence, cigarettes, uncomplicated; Z88.5 Allergy status to narcotic agent; Z88.8 Allergy status to other drugs, medicaments and biological substances
CPT/HCPCS: 99284-25

== ENCOUNTER 2021-01-17 13:43 | Emergency (ER) | payer SELFPAY ==
[~2021-01-17] VITALS: Ht 167.6 cm; Wt 88.6 kg
[~2021-01-17 13:43] MED LIST changes: +CEPH500C PO; +FAMO-63 PO
[2021-01-17 14:00] VITALS: BP 147/70
[2021-01-17] MEDS ORDERED: IV NORMAL SALINE 1,000ML 1,000 ML IV ONE (14:00)
--- NOTE | 2021-01-17 14:08 | PHYS DOC ---
Past History Past Medical History: Asthma, Hypertension Additional Past Medical Histor: chronic back pain; bad teeth Past Surgical History: No Surgical History Smoking: Cigarettes Alcohol Use: None Drug Use: None General Adult EDM: Chief Complaint: SORE THROAT HPI: HPI: 40-year-old male presents with sore throat. He has had a sore throat for the last 2 to 3 days. He has been taking [id number]-[id number] medications but is not getting better. 1 day fever that has resolved. No known sick contacts. Review of Systems: Review of Systems: Constitutional: Denies fever or chills Eyes: Denies change in visual acuity HENT: Sore throat Respiratory: Cough without shortness of breath Cardiovascular: Denies chest pain or edema GI: Denies abdominal pain, nausea, vomiting, bloody stools or diarrhea : Denies dysuria Musculoskeletal: Denies back pain or joint pain Integument: Denies rash Neurologic: Denies headache, focal weakness or sensory changes Endocrine: Denies polyuria or polydipsia Psychiatric: Denies depression or anxiety Current Medications: Current Meds: Current Medications Medications (Trade) Dose Ordered Sig/Maya Start Time Stop Time Status Last Admin Dose Admin Sodium Chloride 1,000 ml @ 1,000 mls/hr 1X ONCE 01/17/21 14:00 01/17/21 14:59 UNV Allergies: Allergies: Allergies Coded Allergies Type Severity Reaction Last Updated Verified ketorolac Allergy Severe Rash 08/22/20 Yes oxymorphone Allergy Intermediate Rash 08/22/20 Yes tramadol Allergy Intermediate rash 08/22/20 Yes trazodone Allergy Intermediate Nausea and Vomiting 08/22/20 No gabapentin Allergy Mild nausea 09/08/20 Yes Physical Exam: PE: Constitutional: Well developed, well nourished, no acute distress, non-toxic appearance. [] HENT: Normocephalic, atraumatic, bilateral external ears normal, oropharynx e rythematous with enlarged tonsils and small exudate on the right, nose normal. [] Eyes: PERRLA, EOMI, conjunctiva normal, no discharge. [] Neck: Normal range of motion, no tenderness, supple, no stridor. [] Cardiovascular: Heart rate 102, regular rhythm, no murmur [] Lungs & Thorax: Bilateral breath sounds clear to auscultation [] Abdomen: Bowel sounds normal, soft, no tenderness, no masses, no pulsatile masses. [] Skin: Warm, dry, no erythema, no rash. [] Back: No tenderness, no CVA tenderness. [] Extremities: No tenderness, no cyanosis, no clubbing, ROM intact, no edema. [] Neurologic: Alert and oriented X 3, normal motor function, normal sensory function, no focal deficits noted. [] Psychologic: Affect normal, judgement normal, mood normal. [] EKG: EKG: [] Radiology/Procedures: Radiology/Procedures: [] Impressions: EXAM: Chest, single view. HISTORY: Cough and fever. COMPARISON: None. FINDINGS: A frontal view of the chest is obtained. There is no infiltrate, pleural effusion or pneumothorax. The heart is normal in size. IMPRESSION: No acute pulmonary finding. Electronically signed by: Alana Pepe MD (01/17/2021 2:13 PM) [id number] DICTATED AND SIGNED BY: ALANA PEPE MD DATE: 01/17/21 141 CC: MILTON ASHRAF DO; PCP,NO ~MTH0 0 Heart Score: C/O Chest Pain: N/A Risk Factors: Risk Factors: DM, Current or recent (<one month) smoker, HTN, HLP, family history of CAD, obesity. Risk Scores: Score 0 - 3: 2.5% MACE over next 6 weeks - Discharge Home Score 4 - 6: 20.3% MACE over next 6 weeks - Admit for Clinical Observation Score 7 - 10: 72.7% MACE over next 6 weeks - Early Invasive Strategies Course & Med Decision Making: Course & Med Decision Making Pertinent Labs and Imaging studies reviewed. (See chart for details) The patient's rapid strep is negative. His mononucleosis is negative. His Covid is pending. This looks to be viral pharyngitis. I will treat him with 125 Solu-Medrol in the ER. I recommended supportive care such as staying well- hydrated and using throat lozenges as needed. He is stable for discharge at this time. [] Dragon Disclaimer: Dragon Disclaimer: This electronic medical record was generated, in whole or in part, using a voice recognition dictation system. Departure Departure: Impression: Primary Impression: Viral pharyngitis Disposition: HOME / SELF CARE / HOMELESS Condition: STABLE Referrals: PCP,NO (PCP) Patient Instructions: Viral Pharyngitis MILTON ASHRAF DO Jan 17, 2021 14:08
--- NOTE | 2021-01-17 14:15 | RAD ---
EXAM: Chest, single view. HISTORY: Cough and fever. COMPARISON: None. FINDINGS: A frontal view of the chest is obtained. There is no infiltrate, pleural effusion or pneumo thorax. The heart is normal in size. IMPRESSION: No acute pulmonary finding. Electronically signed by: Alana Pepe MD (01/17/2021 2:13 PM) [id number]
[2021-01-17 14:49] LABS: BASO # 0.1 x10^3/uL (0.0-0.2); BASO % 2 % (0-3); EOS # 0.1 x10^3/uL (0.0-0.7); EOS % 2 % (0-3); HEMATOCRIT 43.1 % (39.0-53.0); HEMOGLOBIN 14.4 g/dL (13.0-17.5); LYMPH # 1.8 x10^3/uL (1.0-4.8); LYMPH % 25 % (24-48); MEAN CORPUSCULAR HEMOGLOBIN 31 pg (25-35); MEAN CORPUSCULAR HGB CONC 34 g/dL (31-37); MEAN CORPUSCULAR VOLUME 92 fL (79-100); MONO # 0.5 x10^3/uL (0.0-1.1); MONO % 7 % (0-9); NEUT # 4.6 x10^3uL (1.8-7.7); NEUT % 64 % (31-73); PLATELET COUNT 287 x10^3/uL (140-400); RED BLOOD COUNT 4.68 x10^6/uL (4.30-5.70); WHITE BLOOD COUNT 7.2 x10^3/uL (4.0-11.0)
[2021-01-17 14:59] LABS: CALCIUM 9.6 mg/dL (8.5-10.1); CREATININE 0.7 mg/dL (0.7-1.3); GFR 152.7; POTASSIUM 4.1 mmol/L (3.5-5.1)
[2021-01-17 15:05] LABS: MONONUCLEOSIS PATIENT NEGATIVE (NEGATIVE); TOTAL BILIRUBIN 0.4 mg/dL (0.2-1.0); TOTAL PROTEIN 7.9 g/dL (6.4-8.2)
[2021-01-17] MEDS ORDERED: methylPREDNISolone SOD SUCC PF 125 MG/2 ML VIAL. IV ONE (15:30)
== END 2021-01-17 15:35 | disposition home or self-care (01) ==
LOC: ER 13:43
DX: J02.8 Acute pharyngitis due to other specified organisms (principal); I10 Essential (primary) hypertension; J45.909 Unspecified asthma, uncomplicated; G89.29 Other chronic pain; F17.210 Nicotine dependence, cigarettes, uncomplicated; Z20.822 Contact with and (suspected) exposure to COVID-19; Z88.8 Allergy status to other drugs, medicaments and biological substances; Z88.5 Allergy status to narcotic agent; Z88.6 Allergy status to analgesic agent
CPT/HCPCS: 36415; 71045; 80053; 85025; 86308; 87070; 87880; 96360; 99284; C9803; J7030; U0003